=== PATIENT | female | born 1935 | race Caucasian/White ===

== ENCOUNTER 2016-11-19 11:09 | Inpatient (IN) | payer MEDICARE, OTHER ==
[2016-11-19 12:12] LABS: AUTOMATED BASOPHIL 0.3 % (0-2); AUTOMATED EOSINOPHIL 0.5 % (0-5); AUTOMATED LYMPH 8.9 % (17-44); AUTOMATED MONOCYTE 2.3 % (3-10); MPV 9.4 fL (7.4-10.4)
[2016-11-19 12:28] LABS: BLOOD UREA NITROGEN 56 MG/DL (7-17); CALC CORRECTED 9.5 MG/DL (8.4-10.2); CALCIUM 9.3 MG/DL (8.4-10.2); CALCULATED OSMOLALITY 297 MOs/Kg (270-290); CHLORIDE 109 mEq/L (98-107); GLUCOSE 83 MG/DL (70-99); SODIUM LEVEL 147 mEq/L (137-146); TOTAL PROTEIN 7.5 G/DL (6.3-8.2)
--- NOTE | 2016-11-19 12:33 | PMOFOLLOWU ---
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 However, CT scans dating back for at least the past year have shown her to essentially have had a complete response to her therapy. She comes in today to be evaluated before her 48th cycle of Perjeta/ Herceptin. Her 47th cycle was delayed 1 week due to dehydration. The patient had a persistent upper respiratory infection after 7 days of amoxicillin, so amoxicillin was continued for an additional 10 days. She states she completed her antibiotics yesterday. Unfortunately she has had significant diarrhea, which she attributes to the antibiotic use. She states she has not been using the Imodium regularly, as her stool was discolored. She denies nausea, vomiting or abdominal pain. She states her appetite is poor and has not been eating. She last ate Jello 2 days ago. She states she has been drinking plenty of fluids, including Gatorade. She remains weak and is in a wheelchair today. She denies dizziness, fevers or chills. She reports intermittent pain in her right ankle, where she has had previous surgery. She also has right knee pain and has had a recent injection in the knee. However, from a breast cancer perspective, she denies any new findings that concern her for disease progression while on her dual her 2 blockade therapy. PHYSICAL EXAMINATION: Vital signs today include a weight of 135.5 lb, this is a decrease of 13 lb, blood pressure 143/65, pulse 93, respirations 18 and temperature 98.4. Pulse oximetry is 97% on room air. Generally, she is alert and oriented x3 a week and chronically ill-appearing woman in no acute distress. HEENT: Oral mucosa is dry without lesion. Posterior pharynx is negative. Sclerae are anicteric. Lung exam is clear to auscultation bilaterally. Cardiac exam reveals a regular rate and rhythm, without murmurs, rubs, or gallops. Abdomen is soft, nontender, and nondistended without masses or hepatosplenomegaly. Extremities are without cyanosis, clubbing, or edema. The right ankle is not swollen, erythematous, tender or warm. Lymph node survey reveals no palpable cervical, clavicular, axillary, or inguinal lymphadenopathy. ASSESSMENT AND PLAN: 81-year-old metastatic her 2 Denny receptor positive breast cancer, including spread of her disease to her lungs. She has significant weight loss at this time, with severe diarrhea. As this is the case, I will delay 48th cycle of Perjeta/Herceptin 1 week. I will give her IV fluids today and attempt to obtain a stool specimen for evaluation for an infectious cause of her diarrhea. I will also obtain a CBC and comprehensive metabolic panel for further evaluation. We will plan to see her back in 1 week prior to a possible 48 cycle of Perjeta/Herceptin. The patient and her daughter understand the plans discussed today and are in agreement with them. They know to contact our office if she develops issues requiring immediate clinical assessment. Addendum: Complete metabolic panel revealed a creatinine of 5.3, BUN of 56 and potassium 2.1. The patient will be admitted with dehydration, acute renal failure, and hypokalemia. She also had leukocytosis with a white count of 17, so I am still concerned about potential infection. As a hospital bed is not immediately available, I will give her 10 meq potassium chloride IV over the next hour. If she is able, we will obtain a urine and stool specimen while we are awaiting a bed. The patient was able to supply stool specimen, which was positives for Clostridium difficile. Her nurse on the floor was notified.
[2016-11-19 14:37] LABS: LEUKOCYTES/URINE 2+ (NEGATIVE); NITRITE/URINE NEG (NEGATIVE); URINE OCCULT BLOOD 1+ (NEG/TRACE); WBC/URINE 30-40 (0-5)
[2016-11-19] MEDS ORDERED: Vaccine Screening Complete SCH (16:00)
[2016-11-19] MEDS ORDERED: OXYCODONE HCL 5 MG TABLET PO PRN (16:29)
[2016-11-19] MEDS ORDERED: PROMETHAZINE 25 MG/ML VIAL IV PRN (16:30)
[2016-11-19] MEDS ORDERED: ACETAMINOPHEN 325 MG/TAB TABLET PO PRN (16:30)
[2016-11-19] MEDS ORDERED: Aluminum;Magnesium;Simethicone 30 ML UDC PO PRN (16:30)
[2016-11-19] MEDS ORDERED: SODIUM CHLORIDE 0.9% 3 ML FLUSH FLUSH PRN (16:30)
--- NOTE | 2016-11-19 16:39 | HISTPHYS ---
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 However, CT scans dating back for at least the past year have shown her to essential have had a complete response to her therapy. She comes in today to be evaluated before her 48th cycle of Perjeta/Herceptin. Her 47th cycle was delayed 1 week due to dehydration. The patient had a persistent upper respiratory infection after 7 days of amoxicillin, so amoxicillin was continued for an additional 10 days. She states she completed her antibiotics yesterday. Unfortunately she has had significant diarrhea, which she attributes to the antibiotic use. She states she has not been using the Imodium regularly, as her stool was discolored. She denies nausea, vomiting or abdominal pain. She states her appetite is poor and has not been eating. She last ate Jello 2 days ago. She states she has been drinking plenty of fluids, including Gatorade. She remains weak and is in a wheelchair today. She denies dizziness, fevers or chills. She reports intermittent pain in her right ankle where she has had previous surgery. She also has right knee pain and has had a recent injection in the knee However, from a breast cancer perspective, she denies any new findings that concern her for disease progression while on her dual her 2 blockade therapy. Patient's stool was tested and she was found to be positive for C diff coli sepsis. She also has an extremely low potassium and we are repleting that IV. She will be admitted into the hospital for further evaluation and management of profound C diff colitis and hypokalemia. - Medical History Cardiac History: Denies: Hypertension, Congestive Heart Failure, Heart Attack, Cardiac Catheterization, CABG, Pacemaker, Syncope, SVT Respiratory History: Reports: Pulmonary Embolism (02/2014). Denies: Asthma, COPD, Pneumonia, Emphysema GI/ History: Denies: Renal Disease, Renal Failure, Urinary Tract Infection, Kidney Stones, Ulcer, Diverticulosis, Pancreatitis Musculoskeletal History: Reports: Arthritis. Denies: Gout Systemic History: Denies: Anemia, Hyperthyroidism, Hypothyroidism Neurological History: Denies: Cerebrovascular Accident, Seizures, Dementia, Guillian-Louise Syndrome, Parkinson's, Multiple Sclerosis Psychological History: Denies: Depression, Anxiety, Bipolar Disorder - Surgical History Denies: Appendectomy, Cholecystectomy, CABG, Angioplasty, Cardiac Catheterization, Hernia Surgery, Tonsillectomy/Adnoidectomy - Medictions/Allergies Allergies clarithromycin Allergy (Verified 03/31/15 09:04) Edema-Generalized nitrofurantoin Allergy (Verified 03/31/15 09:04) Nausea/Vomiting Sulfa (Sulfonamide Antibiotics) Allergy (Verified 03/31/15 09:04) Dizziness Current Medication List: Reviewed Home Medications Loratadine [Claritin] 10 mg PO DAILY PRN 02/07/14 Loperamide HCl [Imodium] 1 mg PO DAILY PRN 03/28/15 Mouthwash [Magic Mouthwash] 180 ml PO DAILY PRN 03/28/15 Ondansetron HCl [Zofran] 4 mg PO Q8H PRN 03/31/15 Oxycodone Immediate Release [Oxycodone Immediate Release (OxyIR)] 1 tab PO Q6H PRN 03/31/15 - Family History Reports: Hypertension (PARENTS), Cancer (BROTHER BRAIN TUMOR ), Stroke (MOTHER) , Cardiac Disorders (PARENTS). Denies: Diabetes - Social History Travel Outside of [place] in the Last 3 Months?: No Lives: With Family Smoking Status: Never smoker Social History: Denies: Alcohol Use - Review of Systems Constitutional: Fatigue, Loss of Appetite, Weight loss Eyes: No Symptoms Reported (No blurry vision, visual changes, eye pain, or eye redness.) Ears: No Symptoms Reported (No ear pain or discharge) Nose: No Symptoms Reported (No nasal discharge/congestion or bleeding) Throat/Neck: No Symptoms Reported (No throat pain or swelling.No oropharyngeal lesions or erythema.) Respiratory: No Symptoms Reported (No cough, wheezing, or shortness of breath.) Cardiovascular: No Symptoms Reported (No chest pain or palpitations.) Gastrointestinal: Nausea, Abdominal Pain, Diarrhea Genitourinary: No Symptoms Reported (No dysuria or hematuria.) Neurological: No Symptoms Reported (No headache, dizziness, seizures, or focal weakness.) Musculoskeletal:: Joint Pain (In her ankle) Integumentary: No Symptoms Reported (no rashes or lesions) Allergic/Immunologic: No Symptoms Reported (no rashes or lesions) Hematologic: No Symptoms Reported (No chronic anemia, bleeding, or easy bruising.), Other (Lymphatics- no lymph node swelling or pain.) Endocrine: No Symptoms Reported (No thyroid issues, polyuria, or polydipsia.) Psychiatric: No Symptoms Reported (Fully oriented, with normal and appropriate affect.) - Physical Exam Vital Signs: Initial Vitals Pulse Rate 80 11/19/16 14:57 Constitutional: Cachectic. negative: Well nourished, Well appearing (Ill- appearing white female in no acute respiratory distress) Oriented to: Time, Person, Place - HEENT Head: Normal (normocephalic, atraumatic.), Other (No cervical lymphadenopathy. No supraclavicular lymphadenopathy. Neck: No palpable mass, supple , trachea midline.) Eye: Normal (pupils equal, reactive to light, and round; EOMI, Sclera white) Oropharynx: Normal (Pharynx: Moist without exudate,Gums-no swelling, No oropharyngeal lesions or erythema, Mucous membranes are dry.) Nose: No Symptoms Reported (septum midline, Nares patent, without discharge or bleeding.) Respiratory: Normal - CTA (Clear to auscultation bilaterally. No wheezing, rales , rhonchi. Chest wall movements are symmetric. No use of accessory muscles to breathe.) Cardiovascular: Normal (RRR , Normal S1, S2. No murmurs, rubs, or gallops. PMI non-displaced. Carotids: no carotid bruits. No bradycardia or tachycardia. DP pulses 2+ bilaterally.) - GI Auscultation: Normal (normal active sounds) Palpation: Normal (Soft,non distended,nontender. No hepatosplenomegaly.) Tenderness: Diffuse, Mild Jordan's Sign: Negative - Musculoskeletal Back: Normal (Non-Tender) Extremities: Normal (Normal tone, DP pulses 2+ bilaterally, No cyanosis or edema bilaterally, FROM bilaterally.) - Integumentary Skin: Normal (Clean, dry, and intact. No rashes. No lesions.) Lymphatics: Normal (No cervical lymphadenopathy. No supraclavicular lymphadenopathy.) - Neurologic Memory Impaired: Normal Motor Function: Normal (Motor 5/5 throughout.Normal tone, Pulses 2+ No cyanosis or edema, FROM) Cranial Nerve: Normal (CN II-XII intact sensation, strength 5/5) Cerebellar: Normal (Babinski: toes downgoing bilaterally. Intact Finger to nose. Sensory grossly intact to light touch. Intact rapid alternating movements bilaterally. No pronator drift.) Mood Description: Normal (Fully oriented. Normal and appropriate affect.) Perception: Normal (Normal and appropriate affect.) - Focused CV Perfusion Exam Vital Signs: Last Vital Signs Temp 97.5 F 11/19/16 14:58 Pulse 64 11/19/16 14:58 Resp 18 11/19/16 14:58 BP 133/56 L 11/19/16 14:58 Pulse Ox 96 11/19/16 14:58 - Lab Results Laboratory Results - last 24 hr 11/19/16 11/19/16 11/19/16 11:53 11:53 14:19 WBC 17.0 H RBC 5.38 Hgb 15.1 Hct 45.9 MCV 85 MCH 28.0 MCHC 32.8 L RDW 15.4 H Plt Count 380 MPV 9.4 Neut % (Auto) 88.0 H Lymph % (Auto) 8.9 L [place] % (Auto) 2.3 L Eos % (Auto) 0.5 Baso % (Auto) 0.3 Absolute Neuts (auto) 14.96 H Absolute Lymphs (auto) 1.36 Sodium 147 H Potassium 2.1 L* Chloride 109 H Carbon Dioxide 16 L Anion Gap 24 H BUN 56 H Creatinine 5.30 H Estimated GFR (MDRD) 8 L Glucose 83 Calculated Osmolality 297 H Calcium 9.3 Corrected Calcium 9.5 Total Bilirubin 0.7 AST 19 ALT 24 Alkaline Phosphatase 121 Total Protein 7.5 Albumin 3.8 Urine Color Yellow Urine Clarity Clear Urine pH 5.0 Ur Specific [place] 1.005 Urine Protein 2+ H Urine Glucose (UA) Neg Urine Ketones Neg Urine Occult Blood 1+ H Urine Nitrite Neg Urine Bilirubin Neg Urine Urobilinogen <2.0 Ur Leukocyte Esterase 2+ H Urine RBC 2-5 Urine WBC 30-40 H Ur Epithelial Cells 2+ Urine Bacteria Few Urine Mucus Occ - Assessment (1) C. difficile colitis A04.7 - ENTEROCOLITIS DUE TO CLOSTRIDIUM DIFFICILE Acute Present on Admission: Yes Patient seen and Cancer Center today stool tested positive for C diff colitis. She is being directly admitted to the hospital for treatment of above C diff colitis. She will start Flagyl 500 mg p.o. t.i.d.. Expect discharge when patient's stool are fewer an more firm. (2) Inflammatory breast cancer C50.919 - MALIGNANT NEOPLASM OF UNSP SITE OF UNSPECIFIED FEMALE BREAST Acute Present on Admission: Yes Qualifiers: Laterality: left Qualified Code(s): C50.912 - Malignant neoplasm of unspecified site of left female breast Patient has had metastases to lung as well as the left breast cancer. She gets multiple cycles of chemotherapy is on her 49 cycle. Her 48 cycle was delayed due to illness and the 49th cycle is being held due to her admission for C diff colitis to the hospital today. (3) Hypokalemia E87.6 - HYPOKALEMIA Acute Present on Admission: Yes Patient's potassium is very low will repeat potassium after she received some potassium in the oncology clinic today. Will provide her with IV fluids with potassium as well suspected potassium is very low due to the diarrhea will also check a magnesium level. (4) Weakness R53.1 - WEAKNESS Acute Present on Admission: Yes Highly associated with C diff colitis expect this to improve once her overall clinical picture is improved. (5) DVT prophylaxis [id number] - Acute Present on Admission: Yes Patient currently on DVT prophylaxis with Lovenox. - Plan Admit, p.o. Flagyl, replete electrolytes and hydrate patient. Await return of normal stools. Case Care Discussed with: Patient, Nursing Staff Total Time: 55 minutes Critical Care: No Couseling Time (>50% in counseling/coordination): No
[2016-11-19] MEDS: NS/KCl 20 mEq 1,000 ML IV SCH (17:41)
[2016-11-19] MEDS: PROBIOTIC BLEND TAB PO SCH (17:43)
[2016-11-19] MEDS: SODIUM CHLORIDE 0.9% 3 ML FLUSH FLUSH SCH (17:43)
[2016-11-19] MEDS: ENOXAPARIN 30 MG/0.3 ML PFS SQ SCH (17:43)
[2016-11-19] MEDS: METRONIDAZOLE 500 MG TAB PO SCH ×2 (17:43→20:21)
[2016-11-19 18:12] LABS: BLOOD UREA NITROGEN 57 MG/DL (7-17); CALCIUM 8.5 MG/DL (8.4-10.2); CALCULATED OSMOLALITY 292 MOs/Kg (270-290); CHLORIDE 111 mEq/L (98-107); GLUCOSE 87 MG/DL (70-99); SODIUM LEVEL 144 mEq/L (137-146)
[2016-11-19] MEDS: POTASSIUM CHLORIDE 20 MEQ/15 ML ORAL SOLN PO SCH ×3 (18:40→22:41)
[2016-11-19] MEDS ORDERED: SECURA EXTRA PROTECTIVE CREAM TOP ONE (22:33)
[2016-11-19 23:56] LABS: BLOOD UREA NITROGEN 56 MG/DL (7-17); CALCIUM 8.5 MG/DL (8.4-10.2); CALCULATED OSMOLALITY 291 MOs/Kg (270-290); CHLORIDE 113 mEq/L (98-107); GLUCOSE 95 MG/DL (70-99); SODIUM LEVEL 143 mEq/L (137-146)
[2016-11-20] MEDS: POTASSIUM CHLORIDE 20 MEQ/15 ML ORAL SOLN PO SCH (01:44)
[2016-11-20] MEDS: NS/KCl 20 mEq 1,000 ML IV SCH ×5 (01:45→20:57)
[2016-11-20] MEDS: SODIUM CHLORIDE 0.9% 3 ML FLUSH FLUSH SCH ×2 (05:06→17:29)
[2016-11-20] MEDS: METRONIDAZOLE 500 MG TAB PO SCH ×2 (05:06→13:27)
[2016-11-20 05:33] LABS: AUTOMATED BASOPHIL 0.4 % (0-2); AUTOMATED EOSINOPHIL 2.2 % (0-5); AUTOMATED LYMPH 10.6 % (17-44); AUTOMATED MONOCYTE 4.4 % (3-10); AUTOMATED NEUTROPHIL 82.4 % (45-76); MPV 9.6 fL (7.4-10.4)
[2016-11-20 05:50] LABS: BLOOD UREA NITROGEN 52 MG/DL (7-17); CALC CORRECTED 10.2 MG/DL (8.4-10.2); CALCIUM 8.6 MG/DL (8.4-10.2); CALCULATED OSMOLALITY 295 MOs/Kg (270-290); CHLORIDE 117 mEq/L (98-107); GLUCOSE 99 MG/DL (70-99); SODIUM LEVEL 146 mEq/L (137-146)
--- NOTE | 2016-11-20 11:58 | GENMEDPROG ---
Chief Complaint: diarrhea some better loose bm w/ each meal Notes Reviewed: Yes Events from last night noted and discussed with Clinical Staff Current Medication List: Reviewed DVT Prophylaxis: Yes - Physical Examination Vital Signs and I&O: Last Vital Signs Temp 97.7 F 11/20/16 05:38 Pulse 72 11/20/16 11:34 Resp 16 11/20/16 11:34 BP 139/64 11/20/16 11:34 Pulse Ox 100 11/20/16 11:34 Oxygen Pulse Oxygen Saturation 100 O2 Device Room Air Oxygen Flow Rate Fraction of Inspired Oxygen ( FIO2) Intake & Output 11/17/16 11/18/16 11/19/16 11/20/16 23:59 23:59 23:59 23:59 Intake Total 240 1420 Balance 240 1420 Patient's weight 60.146 kg 61.235 kg General: Alert, Oriented x3, No acute distress, Well appearing, Well nourished HEENT: Normal (Normocephalic, atraumatic;EOMI.Sclera white, Nares patent, without discharge or bleeding. No oropharyngeal lesions or erythema. Mucous membranes are dry.) Neck: Non-tender, Normal Trachea alignment, Normal inspection (No cervical lymphadenopathy. No supraclavicular lymphadenopathy.), No Masses palpable, Limited range of motion, Supple Lymphatics: Normal (No cervical lymphadenopathy. No supraclavicular lymphadenopathy.) Respiratory: Normal - CTA (Clear to auscultation bilaterally. No wheezing, rales , rhonchi. Chest wall movements are symmetric. No use of accessory muscles to breathe.) Cardiovascular: Regular rate and rhythm (No bradycardia or tachycardia), Normal S1, No Gallops,Rubs/Murmurs, Normal S2, Good Pedal Pulses (DP pulses 2+ bilaterally) GI: Normal bowel sounds (normal active sounds), Soft (non-distended), Non tender , No hepatospenomegaly, No masses Extremities/Musculoskeletal: Normal pulses (DP pulses 2+ bilaterally). negative : Edema, Clubbing, Cyanosis Skin: Warm,Dry and Intact, No rashes, No significant lesion Neurological: Strength at 5/5 X4 ext (Motor 5/5 throughout.), Normal tone, Cranial nerves 3-12 NL ( 2-12 grossly intact.) Psych/Mental Status: Appropriate, Normal Affect Lab/DI/Studies Reviewed: 11/20/16 05:05 11/20/16 05:05 Laboratory Results - last 24 hr 11/19/16 11/19/16 11/19/16 11:53 11:53 14:19 WBC 17.0 H RBC 5.38 Hgb 15.1 Hct 45.9 MCV 85 MCH 28.0 MCHC 32.8 L RDW 15.4 H Plt Count 380 MPV 9.4 Neut % (Auto) 88.0 H Lymph % (Auto) 8.9 L [place] % (Auto) 2.3 L Eos % (Auto) 0.5 Baso % (Auto) 0.3 Absolute Neuts (auto) 14.96 H Absolute Lymphs (auto) 1.36 Sodium 147 H Potassium 2.1 L* Chloride 109 H Carbon Dioxide 16 L Anion Gap 24 H BUN 56 H Creatinine 5.30 H Estimated GFR (MDRD) 8 L Glucose 83 Calculated Osmolality 297 H Calcium 9.3 Corrected Calcium 9.5 Magnesium Total Bilirubin 0.7 AST 19 ALT 24 Alkaline Phosphatase 121 Total Protein 7.5 Albumin 3.8 Urine Color Yellow Urine Clarity Clear Urine pH 5.0 Ur Specific [place] 1.005 Urine Protein 2+ H Urine Glucose (UA) Neg Urine Ketones Neg Urine Occult Blood 1+ H Urine Nitrite Neg Urine Bilirubin Neg Urine Urobilinogen <2.0 Ur Leukocyte Esterase 2+ H Urine RBC 2-5 Urine WBC 30-40 H Ur Epithelial Cells 2+ Urine Bacteria Few Urine Mucus Occ 11/19/16 11/19/16 11/19/16 17:30 18:35 23:10 WBC RBC Hgb Hct MCV MCH MCHC RDW Plt Count MPV Neut % (Auto) Lymph % (Auto) [place] % (Auto) Eos % (Auto) Baso % (Auto) Absolute Neuts (auto) Absolute Lymphs (auto) Sodium 144 143 Potassium 2.2 L* 2.9 L D Chloride 111 H 113 H Carbon Dioxide 14 L 14 L Anion Gap 21 H 19 H BUN 57 H 56 H Creatinine 4.70 H 4.50 H Estimated GFR (MDRD) 9 L 9 L Glucose 87 95 Calculated Osmolality 292 H 291 H Calcium 8.5 8.5 Corrected Calcium Education Program Manager Magnesium 1.90 Total Bilirubin AST ALT Alkaline Phosphatase Total Protein Albumin Urine Color Urine Clarity Urine pH Ur Specific [place] Urine Protein Urine Glucose (UA) Urine Ketones Urine Occult Blood Urine Nitrite Urine Bilirubin Urine Urobilinogen Ur Leukocyte Esterase Urine RBC Urine WBC Ur Epithelial Cells Urine Bacteria Urine Mucus 11/20/16 11/20/16 05:05 05:05 WBC 13.8 H RBC 3.96 L Hgb 11.3 L D Hct 33.7 L MCV 85 MCH 28.5 MCHC 33.5 RDW 15.5 H Plt Count 243 MPV 9.6 Neut % (Auto) 82.4 H Lymph % (Auto) 10.6 L [place] % (Auto) 4.4 Eos % (Auto) 2.2 Baso % (Auto) 0.4 Absolute Neuts (auto) 11.32 H Absolute Lymphs (auto) 1.38 Sodium 146 Potassium 3.4 L Chloride 117 H Carbon Dioxide 16 L Anion Gap 16 BUN 52 H Creatinine 4.40 H Estimated GFR (MDRD) 10 L Glucose 99 Calculated Osmolality 295 H Calcium 8.6 Corrected Calcium 10.2 Magnesium Total Bilirubin 0.4 AST 11 L ALT 28 Alkaline Phosphatase 85 Total Protein 5.0 L Albumin 2.4 L Urine Color Urine Clarity Urine pH Ur Specific [place] Urine Protein Urine Glucose (UA) Urine Ketones Urine Occult Blood Urine Nitrite Urine Bilirubin Urine Urobilinogen Ur Leukocyte Esterase Urine RBC Urine WBC Ur Epithelial Cells Urine Bacteria Urine Mucus - Assessment (1) ARF (acute renal failure) Acute N17.9 - ACUTE KIDNEY FAILURE, UNSPECIFIED Qualifiers: Acute renal failure type: with acute tubular necrosis Qualified Code(s): N17.0 - Acute kidney failure with tubular necrosis Comment/Plan: Aggressive IV rehydration is necessary. Check renal ultrasound. (2) C. difficile colitis Acute A04.7 - ENTEROCOLITIS DUE TO CLOSTRIDIUM DIFFICILE Comment/Plan: Patient seen and Cancer Center today stool tested positive for C diff colitis. She is being directly admitted to the hospital for treatment of above C diff colitis. Discussed with pharmacist Patricia who agrees that we should administer p.o. vancomycin instead of Flagyl due to her renal failure and multiple complications. Expect discharge when patient's stool are fewer and more firm. (3) Hypokalemia Acute E87.6 - HYPOKALEMIA Comment/Plan: Patient's potassium is very low will repeat potassium after she received some potassium in the oncology clinic today. Will provide her with IV fluids with potassium as well suspected potassium is very low due to the diarrhea will also check a magnesium level. 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 She gets multiple cycles of chemotherapy is on her 49 cycle. Her 48 cycle was delayed due to illness and the 49th cycle is being held due to her admission for C diff colitis to the hospital today. (5) Weakness Acute R53.1 - WEAKNESS Comment/Plan: Highly associated with C diff colitis expect this to improve once her overall clinical picture is improved. (6) DVT prophylaxis Acute [id number] - Comment/Plan: Patient currently on DVT prophylaxis with Lovenox. Case Care Discussed with: Patient, Family, Nursing Staff, Resource Management Education/Counseling Given To: Patient, Family Member Education/Counseling Given Regarding: Diagnosis Total Time: 38 min Critical Care: No Code: [id number] (12+)
[2016-11-20] MEDS: PROBIOTIC BLEND TAB PO SCH ×2 (13:27→17:29)
[2016-11-20] MEDS: NYSTATIN ORAL SUSP 5 ML PO SCH ×2 (17:29→20:59)
[2016-11-20] MEDS: VANCOMYCIN PO SCH ×2 (17:29→23:51)
[2016-11-20] MEDS: ENOXAPARIN 30 MG/0.3 ML PFS SQ SCH (17:30)
--- NOTE | 2016-11-20 20:13 | PCM.CCCON2 ---
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 However she has been declining recently with decreased appetite and now loose bowels. She has become very weak and was found to be in acute renal failure with a creatinine of 2.7 and was admitted for hydration. Testing has confirmed clostridia difficile colitis and she is being treated for that. She complains of soreness of her mouth, especially at the corners of her mouth which are dry and scaly. She is receiving IV hydration in addition to antibiotics and has been instructed to eat yogurt. Her therapy is on hold at this time. Last CT scan in September revealed no evidence of disease other than some tiny pulmonary nodules of unclear significance. Her last echocardiogram was in August of 2016. Past Medical History: Metastatic breast cancer, history of pulmonary embolism in February of 2014, hypertension and osteoarthritis. Past Surgical History: Cholecystectomy, right foot surgery, and partial hysterectomy. Allergies clarithromycin Allergy (Verified 11/20/16 14:51) Edema-Generalized nitrofurantoin Allergy (Verified 11/20/16 14:51) Nausea/Vomiting Sulfa (Sulfonamide Antibiotics) Allergy (Verified 11/20/16 14:51) Dizziness Home Medications No Home Medications 11/20/16 Family History: A brother of a malignant brain tumor. Social History: Traveled outside the [place] in the last 3 months? No. She has 2 living children. Never smoker, but did dip tobacco for over 40 years. She does not drink alcohol. She worked in the [employer] industry. Review of Systems: She is unable to give a review of systems. Physical Examination: Temperature: 97.6 F (11/20/16 19:51)HR: 78 (11/20/16 19:51)RR: 18 (11/20/16 19: 51)BP: 137/69 (11/20/16 19:51) SAT:97 (11/20/16 19:51) This is a thin elderly pale woman who is quite weak and lethargic. HEENT: pupils are equal, round, reactive to light. She has an oxygen mask in place. Sclera are nonicteric. Posterior pharynx has some mild erythema with scaling and cracking at the corners of her mouth. No thyromegaly. No adenopathy is palpated in the cervical, clavicular, axillary or inguinal areas. Lungs are clear to auscultation and percussion. Heart has a regular rate and rhythm with no murmurs or gallops. Abdomen is soft, no masses, no hepatosplenomegaly or tenderness. Extremities are without edema. Neurologic exam is grossly intact. LAB/DI: Laboratory Results - last 24 hr 11/19/16 11/19/16 11/20/16 18:35 23:10 05:05 WBC RBC Hgb Hct MCV MCH MCHC RDW Plt Count MPV Neut % (Auto) Lymph % (Auto) [place] % (Auto) Eos % (Auto) Baso % (Auto) Absolute Neuts (auto) Absolute Lymphs (auto) Sodium 143 146 Potassium 2.9 L D 3.4 L Chloride 113 H 117 H Carbon Dioxide 14 L 16 L Anion Gap 19 H 16 BUN 56 H 52 H Creatinine 4.50 H 4.40 H Estimated GFR (MDRD) 9 L 10 L Glucose 95 99 Calculated Osmolality 291 H 295 H Calcium 8.5 8.6 Corrected Calcium Director Meetings 10.2 Total Bilirubin 0.4 AST 11 L ALT 28 Alkaline Phosphatase 85 Total Protein 5.0 L Albumin 2.4 L 11/20/16 05:05 WBC 13.8 H RBC 3.96 L Hgb 11.3 L D Hct 33.7 L MCV 85 MCH 28.5 MCHC 33.5 RDW 15.5 H Plt Count 243 MPV 9.6 Neut % (Auto) 82.4 H Lymph % (Auto) 10.6 L Harper % (Auto) 4.4 Eos % (Auto) 2.2 Baso % (Auto) 0.4 Absolute Neuts (auto) 11.32 H Absolute Lymphs (auto) 1.38 Sodium Potassium Chloride Carbon Dioxide Anion Gap BUN Creatinine Estimated GFR (MDRD) Glucose Calculated Osmolality Calcium Corrected Calcium Total Bilirubin AST ALT Alkaline Phosphatase Total Protein Albumin Recommendations: Impression and recommendations: 1. Clostridia difficile colitis, I agree with your management. 2. Metastatic her positive breast cancer on systemic therapy with her 2 blockade. Her last scans showed she is in remission. 3. Acute renal failure which appears largely related to dehydration from #1. She is now receiving replacement fluids. 4. Anemia, mild. 5. Early oral candidiasis. 6. History of pulmonary embolism in 2014. I agree with your medical management and will add nystatin oral suspension for her oral candidiasis. Otherwise we will follow along while she is in the hospital and reschedule her appointment when discharge. Thank you for this consultation.
[2016-11-20] MEDS ORDERED: SECURA EXTRA PROTECTIVE CREAM TOP ONE (20:54)
[2016-11-21] MEDS: NS/KCl 20 mEq 1,000 ML IV SCH ×5 (02:30→21:07)
[2016-11-21 05:30] LABS: MPV 9.3 fL (7.4-10.4)
[2016-11-21 05:45] LABS: BLOOD UREA NITROGEN 42 MG/DL (7-17); CALCIUM 8.3 MG/DL (8.4-10.2); CALCULATED OSMOLALITY 294 MOs/Kg (270-290); CHLORIDE 126 mEq/L (98-107); GLUCOSE 76 MG/DL (70-99); SODIUM LEVEL 148 mEq/L (137-146)
[2016-11-21] MEDS: SODIUM CHLORIDE 0.9% 3 ML FLUSH FLUSH SCH ×2 (06:19→16:24)
[2016-11-21] MEDS: VANCOMYCIN PO SCH ×3 (06:20→18:08)
[2016-11-21] MEDS: NYSTATIN ORAL SUSP 5 ML PO SCH ×4 (07:54→21:40)
--- NOTE | 2016-11-21 10:03 | GENMEDPROG ---
Chief Complaint: feeling stronger Notes Reviewed: Yes Events from last night noted and discussed with Clinical Staff Current Medication List: Reviewed DVT Prophylaxis: Yes - Physical Examination Vital Signs and I&O: Last Vital Signs Temp 97.4 F L 11/21/16 08:00 Pulse 66 11/21/16 08:00 Resp 16 11/21/16 08:00 BP 123/67 11/21/16 08:00 Pulse Ox 97 11/21/16 09:34 Oxygen Pulse Oxygen Saturation 97 O2 Device Room Air Oxygen Flow Rate Fraction of Inspired Oxygen ( FIO2) Intake & Output 11/18/16 11/19/16 11/20/16 11/21/16 23:59 23:59 23:59 23:59 Intake Total 240 3772 2360 Balance 240 3772 2360 Patient's weight 60.146 kg 61.235 kg 61.49 kg General: Alert, Oriented x3, No acute distress, Well appearing, Well nourished HEENT: Normal (Normocephalic, atraumatic;EOMI.Sclera white, Nares patent, without discharge or bleeding. No oropharyngeal lesions or erythema. Mucous membranes are dry.) Neck: Non-tender, Normal Trachea alignment, Normal inspection (No cervical lymphadenopathy. No supraclavicular lymphadenopathy.), No Masses palpable, Limited range of motion, Supple Lymphatics: Normal (No cervical lymphadenopathy. No supraclavicular lymphadenopathy.) Respiratory: Normal - CTA (Clear to auscultation bilaterally. No wheezing, rales , rhonchi. Chest wall movements are symmetric. No use of accessory muscles to breathe.) Cardiovascular: Regular rate and rhythm (No bradycardia or tachycardia), Normal S1, No Gallops,Rubs/Murmurs, Normal S2, Good Pedal Pulses (DP pulses 2+ bilaterally) GI: Normal bowel sounds (normal active sounds), Soft (non-distended), Non tender , No hepatospenomegaly, No masses Extremities/Musculoskeletal: Normal pulses (DP pulses 2+ bilaterally). negative : Edema, Clubbing, Cyanosis Skin: Warm,Dry and Intact, No rashes, No significant lesion Neurological: Strength at 5/5 X4 ext (Motor 5/5 throughout.), Normal tone, Cranial nerves 3-12 NL ( 2-12 grossly intact.) Psych/Mental Status: Appropriate, Normal Affect Lab/DI/Studies Reviewed: 11/21/16 04:55 11/21/16 04:55 Laboratory Results - last 24 hr 11/21/16 11/21/16 04:55 04:55 WBC 8.1 RBC 3.71 L Hgb 10.5 L Hct 32.4 L MCV 87 MCH 28.4 MCHC 32.6 L RDW 16.0 H Plt Count 215 MPV 9.3 Sodium 148 H Potassium 3.6 Chloride 126 H Carbon Dioxide 14 L Anion Gap 12 BUN 42 H Creatinine 3.90 H Estimated GFR (MDRD) 11 L Glucose 76 Calculated Osmolality 294 H Calcium 8.3 L - Assessment (1) ARF (acute renal failure) Acute N17.9 - ACUTE KIDNEY FAILURE, UNSPECIFIED Qualifiers: Acute renal failure type: with acute tubular necrosis Qualified Code(s): N17.0 - Acute kidney failure with tubular necrosis Comment/Plan: Aggressive IV rehydration is necessary. Check renal ultrasound today. (2) C. difficile colitis Acute A04.7 - ENTEROCOLITIS DUE TO CLOSTRIDIUM DIFFICILE Comment/Plan: Patient seen and [facility] today stool tested positive for C diff colitis. She is being directly admitted to the hospital for treatment of above C diff colitis. Discussed with pharmacist Patricia who agrees that we should administer p.o. vancomycin instead of Flagyl due to her renal failure and multiple complications. Expect discharge when patient's stool are fewer and more firm. (3) Hypokalemia Acute E87.6 - HYPOKALEMIA Comment/Plan: Patient's potassium is very low will repeat potassium after she received some potassium in the oncology clinic today. Will provide her with IV fluids with potassium as well suspected potassium is very low due to the diarrhea will also check a magnesium level. 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 She gets multiple cycles of chemotherapy is on her 49 cycle. Her 48 cycle was delayed due to illness and the 49th cycle is being held due to her admission for C diff colitis to the hospital today. (5) Weakness Acute R53.1 - WEAKNESS Comment/Plan: Highly associated with C diff colitis expect this to improve once her overall clinical picture is improved. (6) DVT prophylaxis Acute [id number] - Comment/Plan: Patient currently on DVT prophylaxis with Lovenox. Case Care Discussed with: Patient, Nursing Staff, Resource Management Education/Counseling Given To: Patient Education/Counseling Given Regarding: Diagnosis, Treatment Total Time: 39 min Critical Care: No Code: 70836 (12+)
[2016-11-21] MEDS: NS 1,000 ML IV SCH ×2 (10:23→14:25)
[2016-11-21] MEDS: PROBIOTIC BLEND TAB PO SCH ×2 (12:18→16:24)
[2016-11-21] MEDS: MAGIC MOUTHWASH 180 ML ORAL SUSP PO SCH ×3 (12:19→21:40)
[2016-11-21 14:33] LABS: OVA & PARASITE EXAM Final report (.)
--- NOTE | 2016-11-21 16:06 | DIRPT ---
CLINICAL DATA: Acute renal failure. EXAM: RENAL / URINARY TRACT ULTRASOUND COMPLETE COMPARISON: PET-CT 02/08/2014, abdominal CT 01/30/2015 FINDINGS: Right Kidney: Length: 11.7 cm. Echogenicity within normal limits. No hydronephrosis visualized. 1.9 cm parapelvic cyst unchanged. Left Kidney: Length: 11.5 cm. Echogenicity within normal limits. No hydronephrosis visualized. Well-defined oval homogeneously hypoechoic 1.9 cm exophytic mass over the lower pole of the left kidney slightly larger compared to the previous exams. Bladder: Appears normal for degree of bladder distention. IMPRESSION: Normal size kidneys without evidence of hydronephrosis. 1.9 cm indeterminate mass over the lower pole of the left kidney slightly larger. As suggested previously, dedicated pre and post-contrast CT versus MRI is recommended for further evaluation. 1.9 cm right parapelvic renal cyst unchanged. Electronically Signed By: Tyrese Go M.D. On: 11/21/2016 16:03
[2016-11-21] MEDS: ENOXAPARIN 30 MG/0.3 ML PFS SQ SCH (16:23)
--- NOTE | 2016-11-21 17:04 | PCM.CCPN2 ---
Oncology/Hematology Progress Note: HISTORY OF PRESENT ILLNESS: The patient appears to be resting comfortably and states that she is feeling better. She continues having diarrhea but is now less frequent. She states that her mouth is feeling better and she has been able to eat since using nystatin and Magic mouthwash. She really has no complaints today. She denies fever, chills, night sweats. No chest pain, cough , palpitations, shortness of breath. No significant abdominal pain or constipation. She denies nausea and vomiting. PHYSICAL EXAMINATION: VITALS: T-97.9, P-67, R-20, BP-149/70, Oxygen saturation- 97%RA.GENERAL: Well appearing, in no acute distress. HEENT: atraumatic normocephalic. Oropharynx with mild mucositis. Neck is supple. No lymphadenopathy. Sclera are anicteric. LUNGS: Clear to auscultation bilaterally. CARDIOVASCULAR: Regular rate and rhythm, no murmurs, rubs, or gallops. ABDOMEN: Soft, nontender, nondistended, no hepatosplenomegaly. LYMPH NODE SURVEY: No cervical, supraclavicular, axillary, or inguinal lymphadenopathy palpated. EXTREMITIES: No clubbing, cyanosis, or edema. NEURO: Grossly intact. LABORATORY DATA: [] Laboratory Last Values WBC 8.1 xk/uL (3.8-10.8) 11/21/16 04:55 RBC 3.71 xM/uL (4.20-5.40) L 11/21/16 04:55 Hgb 10.5 g/dL (12.0-16.0) L 11/21/16 04:55 Hct 32.4 % (36-47) L 11/21/16 04:55 MCV 87 fL (81-99) 11/21/16 04:55 MCH 28.4 pg (27-32) 11/21/16 04:55 MCHC 32.6 g/dl (33-36) L 11/21/16 04:55 RDW 16.0 % (11.5-14.5) H 11/21/16 04:55 Plt Count 215 xk/uL (130-400) 11/21/16 04:55 MPV 9.3 fL (7.4-10.4) 11/21/16 04:55 Neut % (Auto) 82.4 % (45-76) H 11/20/16 05:05 Lymph % (Auto) 10.6 % (17-44) L 11/20/16 05:05 [place] % (Auto) 4.4 % (3-10) 11/20/16 05:05 Eos % (Auto) 2.2 % (0-5) 11/20/16 05:05 Baso % (Auto) 0.4 % (0-2) 11/20/16 05:05 Absolute Neuts (auto) 11.32 xk/uL (1.7-8.2) H 11/20/16 05:05 Absolute Lymphs (auto) 1.38 xk/uL (0.65-4.75) 11/20/16 05:05 Sodium 148 mEq/L (137-146) H 11/21/16 04:55 Potassium 3.6 mEq/L (3.5-5.1) 11/21/16 04:55 Chloride 126 mEq/L (98-107) H 11/21/16 04:55 Carbon Dioxide 14 mMOL/L (22-33) L 11/21/16 04:55 Anion Gap 12 mEq/L (8-16) 11/21/16 04:55 BUN 42 MG/DL (7-17) H 11/21/16 04:55 Creatinine 3.90 MG/DL (0.52-1.04) H 11/21/16 04:55 Estimated GFR (MDRD) 11 mL/min (>=60) L 11/21/16 04:55 Glucose 76 MG/DL (70-99) 11/21/16 04:55 Calculated Osmolality 294 MOs/Kg (270-290) H 11/21/16 04:55 Calcium 8.3 MG/DL (8.4-10.2) L 11/21/16 04:55 Corrected Calcium 10.2 MG/DL (8.4-10.2) 11/20/16 05:05 Magnesium 1.90 MG/DL (1.6-2.3) 11/19/16 17:30 Total Bilirubin 0.4 MG/DL (0.2-1.3) 11/20/16 05:05 AST 11 IU/L (14-36) L 11/20/16 05:05 ALT 28 IU/L (9-52) 11/20/16 05:05 Alkaline Phosphatase 85 IU/L (55-165) 11/20/16 05:05 Total Protein 5.0 G/DL (6.3-8.2) L 11/20/16 05:05 Albumin 2.4 G/DL (3.5-5.0) L 11/20/16 05:05 Urine Color Yellow 11/19/16 14:19 Urine Clarity Clear 11/19/16 14:19 Urine pH 5.0 (5.0-8.0) 11/19/16 14:19 Ur Specific [place] 1.005 (1.003-1.035) 11/19/16 14:19 Urine Protein 2+ (NEG/TRACE) H 11/19/16 14:19 Urine Glucose (UA) Neg (NEGATIVE) 11/19/16 14:19 Urine Ketones Neg (NEGATIVE) 11/19/16 14:19 Urine Occult Blood 1+ (NEG/TRACE) H 11/19/16 14:19 Urine Nitrite Neg (NEGATIVE) 11/19/16 14:19 Urine Bilirubin Neg (NEGATIVE) 11/19/16 14:19 Urine Urobilinogen <2.0 MG/DL (0-1) 11/19/16 14:19 Ur Leukocyte Esterase 2+ (NEGATIVE) H 11/19/16 14:19 Urine RBC 2-5 (0-5) 11/19/16 14:19 Urine WBC 30-40 (0-5) H 11/19/16 14:19 Ur Epithelial Cells 2+ 11/19/16 14:19 Urine Bacteria Few (NEG/FEW) 11/19/16 14:19 Urine Mucus Occ (NEG/OCC) 11/19/16 14:19 Stool Ova & Parasites Final report (.) 11/19/16 14:19 Parasite Special Info 11/19/16 14:19 A&P: This is a 81-year-old female with 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 She will continue on antibiotics for C-diff. The patient 's last scans do show that she is in remission while on systemic therapy. Her acute renal failure is resolving, however, her creatinine is still quite elevated at 3.9. It appears her oral candidiasis is resolving and she is now able to eat. We will continue following while she is hospitalized please call with any questions or concerns.
[2016-11-21] MEDS ORDERED: SECURA EXTRA PROTECTIVE CREAM TOP ONE (21:37)
[2016-11-22] MEDS: NS/KCl 20 mEq 1,000 ML IV SCH ×4 (00:22→09:44)
[2016-11-22] MEDS: VANCOMYCIN PO SCH ×5 (00:35→23:54)
[2016-11-22] MEDS: SODIUM CHLORIDE 0.9% 3 ML FLUSH FLUSH SCH ×2 (01:37→17:30)
[2016-11-22 05:23] LABS: MPV 9.5 fL (7.4-10.4)
[2016-11-22 05:35] LABS: BLOOD UREA NITROGEN 32 MG/DL (7-17); CALCIUM 7.9 MG/DL (8.4-10.2); CALCULATED OSMOLALITY 291 MOs/Kg (270-290); CHLORIDE 129 mEq/L (98-107); GLUCOSE 65 MG/DL (70-99); SODIUM LEVEL 149 mEq/L (137-146)
[2016-11-22] MEDS: MAGIC MOUTHWASH 180 ML ORAL SUSP PO SCH ×4 (08:29→20:34)
[2016-11-22] MEDS: NYSTATIN ORAL SUSP 5 ML PO SCH ×4 (08:29→20:34)
[2016-11-22] MEDS: PROBIOTIC BLEND TAB PO SCH ×2 (12:36→17:30)
[2016-11-22] MEDS: ENOXAPARIN 30 MG/0.3 ML PFS SQ SCH (17:30)
--- NOTE | 2016-11-22 22:20 | GENMEDPROG ---
Chief Complaint: less diarrhea seems to be improving. Notes Reviewed: Yes Events from last night noted and discussed with Clinical Staff Current Medication List: Reviewed DVT Prophylaxis: Yes - Physical Examination Vital Signs and I&O: Last Vital Signs Temp 97.7 F 11/22/16 20:00 Pulse 84 11/22/16 20:00 Resp 18 11/22/16 20:00 BP 156/86 11/22/16 20:00 Pulse Ox 98 11/22/16 20:00 Oxygen Pulse Oxygen Saturation 98 O2 Device Room Air Oxygen Flow Rate Fraction of Inspired Oxygen ( FIO2) Intake & Output 11/19/16 11/20/16 11/21/16 11/22/16 23:59 23:59 23:59 23:59 Intake Total 240 3772 4866 3480 Output Total 1200 Balance 240 3772 4866 2280 Patient's weight 60.146 kg 61.235 kg 61.49 kg 61.83 kg General: Alert, Oriented x3, No acute distress, Well appearing, Well nourished HEENT: Normal (Normocephalic, atraumatic;EOMI.Sclera white, Nares patent, without discharge or bleeding. No oropharyngeal lesions or erythema. Mucous membranes are dry.) Neck: Non-tender, Normal Trachea alignment, Normal inspection (No cervical lymphadenopathy. No supraclavicular lymphadenopathy.), No Masses palpable, Limited range of motion, Supple Lymphatics: Normal (No cervical lymphadenopathy. No supraclavicular lymphadenopathy.) Respiratory: Normal - CTA (Clear to auscultation bilaterally. No wheezing, rales , rhonchi. Chest wall movements are symmetric. No use of accessory muscles to breathe.) Cardiovascular: Regular rate and rhythm (No bradycardia or tachycardia), Normal S1, No Gallops,Rubs/Murmurs, Normal S2, Good Pedal Pulses (DP pulses 2+ bilaterally) GI: Normal bowel sounds (normal active sounds), Soft (non-distended), Non tender , No hepatospenomegaly, No masses Extremities/Musculoskeletal: Normal pulses (DP pulses 2+ bilaterally). negative : Edema, Clubbing, Cyanosis Skin: Warm,Dry and Intact, No rashes, No significant lesion Neurological: Strength at 5/5 X4 ext (Motor 5/5 throughout.), Normal tone, Cranial nerves 3-12 NL ( 2-12 grossly intact.) Psych/Mental Status: Appropriate, Normal Affect Lab/DI/Studies Reviewed: 11/22/16 05:00 11/22/16 05:00 Laboratory Results - last 24 hr 11/22/16 11/22/16 05:00 05:00 WBC 7.6 RBC 3.81 L Hgb 11.0 L Hct 33.6 L MCV 88 MCH 28.9 MCHC 32.7 L RDW 17.1 H Plt Count 207 MPV 9.5 Sodium 149 H Potassium 4.2 Chloride 129 H Carbon Dioxide 10 L Anion Gap 14 BUN 32 H Creatinine 3.50 H Estimated GFR (MDRD) 13 L Glucose 65 L Calculated Osmolality 291 H Calcium 7.9 L - Assessment (1) ARF (acute renal failure) Acute N17.9 - ACUTE KIDNEY FAILURE, UNSPECIFIED Qualifiers: Acute renal failure type: with acute tubular necrosis Qualified Code(s): N17.0 - Acute kidney failure with tubular necrosis Comment/Plan: Aggressive IV rehydration is necessary. Renal ultrasound failed to show any evidence of hydronephrosis cystic kidneys. (2) C. difficile colitis Acute A04.7 - ENTEROCOLITIS DUE TO CLOSTRIDIUM DIFFICILE Comment/Plan: Patient seen and Cancer [facility] today stool tested positive for C diff colitis. She is being directly admitted to the hospital for treatment of above C diff colitis. Discussed with pharmacist Patricia who agrees that we should administer p.o. vancomycin instead of Flagyl due to her renal failure and multiple complications. Expect discharge when patient's stool are fewer and more firm. (3) Inflammatory breast cancer Acute C50.919 - MALIGNANT NEOPLASM OF UNSP SITE OF UNSPECIFIED FEMALE BREAST Qualifiers: Laterality: left Qualified Code(s): C50.912 - Malignant neoplasm of unspecified site of left female breast Comment/Plan: Patient has had metastases to lung as well as the left breast cancer. She gets multiple cycles of chemotherapy is on her 49 cycle. Her 48 cycle was delayed due to illness and the 49th cycle is being held due to her admission for C diff colitis to the hospital today. (4) Weakness Acute R53.1 - WEAKNESS Comment/Plan: Highly associated with C diff colitis expect this to improve once her overall clinical picture is improved. (5) DVT prophylaxis Acute [id number] - Comment/Plan: Patient currently on DVT prophylaxis with Lovenox. (6) Hypokalemia Resolved E87.6 - HYPOKALEMIA Comment/Plan: Patient's potassium is very low will repeat potassium after she received some potassium in the oncology clinic today. Will provide her with IV fluids with potassium as well suspected potassium is very low due to the diarrhea will also check a magnesium level. (7) Hypernatremia Acute E87.0 - HYPEROSMOLALITY AND HYPERNATREMIA Comment/Plan: Noted to have hypernatremia and will switch her IV saline to D5&w monitoring her electrolytes closely. Case Care Discussed with: Patient, Nursing Staff, Resource Management Education/Counseling Given To: Patient Education/Counseling Given Regarding: Diagnosis, Treatment Total Time: 38 minutes Critical Care: No Code: 34098 (12+)
[2016-11-22] MEDS ORDERED: D5 IV SCH (23:00)
[2016-11-22] MEDS ORDERED: KCL IV SCH (23:00)
[2016-11-22] MEDS: D5 IV SCH (23:53)
[2016-11-22] MEDS: KCL IV SCH (23:53)
[2016-11-23] MEDS: SODIUM CHLORIDE 0.9% 3 ML FLUSH FLUSH SCH ×2 (05:20→16:28)
[2016-11-23] MEDS: VANCOMYCIN PO SCH ×3 (05:20→16:30)
[2016-11-23] MEDS: D5 IV SCH ×5 (05:37→22:47)
[2016-11-23] MEDS: KCL IV SCH ×5 (05:37→22:47)
[2016-11-23 06:26] LABS: MPV 9.7 fL (7.4-10.4)
[2016-11-23 07:03] LABS: BLOOD UREA NITROGEN 30 MG/DL (7-17); CALCIUM 8.2 MG/DL (8.4-10.2); CALCULATED OSMOLALITY 287 MOs/Kg (270-290); CHLORIDE 127 mEq/L (98-107); GLUCOSE 90 MG/DL (70-99); SODIUM LEVEL 146 mEq/L (137-146)
--- NOTE | 2016-11-23 09:14 | GENMEDPROG ---
Chief Complaint: feeling stronger Notes Reviewed: Yes Events from last night noted and discussed with Clinical Staff Current Medication List: Reviewed DVT Prophylaxis: Yes - Physical Examination Vital Signs and I&O: Last Vital Signs Temp 97.7 F 11/23/16 08:00 Pulse 69 11/23/16 08:00 Resp 18 11/23/16 08:00 BP 125/69 11/23/16 08:00 Pulse Ox 96 11/23/16 08:00 Oxygen Pulse Oxygen Saturation 96 O2 Device Room Air Oxygen Flow Rate Fraction of Inspired Oxygen ( FIO2) Intake & Output 11/20/16 11/21/16 11/22/16 11/23/16 23:59 23:59 23:59 23:59 Intake Total 3772 4866 3480 1132 Output Total 1200 Balance 3772 4866 2280 1132 Patient's weight 61.235 kg 61.49 kg 61.83 kg 62.641 kg General: Alert, Oriented x3, No acute distress, Well appearing, Well nourished HEENT: Normal (Normocephalic, atraumatic;EOMI.Sclera white, Nares patent, without discharge or bleeding. No oropharyngeal lesions or erythema. Mucous membranes are dry.) Neck: Non-tender, Normal Trachea alignment, Normal inspection (No cervical lymphadenopathy. No supraclavicular lymphadenopathy.), No Masses palpable, Limited range of motion, Supple Lymphatics: Normal (No cervical lymphadenopathy. No supraclavicular lymphadenopathy.) Respiratory: Normal - CTA (Clear to auscultation bilaterally. No wheezing, rales , rhonchi. Chest wall movements are symmetric. No use of accessory muscles to breathe.) Cardiovascular: Regular rate and rhythm (No bradycardia or tachycardia), Normal S1, No Gallops,Rubs/Murmurs, Normal S2, Good Pedal Pulses (DP pulses 2+ bilaterally) GI: Normal bowel sounds (normal active sounds), Soft (non-distended), Non tender , No hepatospenomegaly, No masses Extremities/Musculoskeletal: Normal pulses (DP pulses 2+ bilaterally). negative : Edema, Clubbing, Cyanosis Skin: Warm,Dry and Intact, No rashes, No significant lesion Neurological: Strength at 5/5 X4 ext (Motor 5/5 throughout.), Normal tone, Cranial nerves 3-12 NL ( 2-12 grossly intact.) Psych/Mental Status: Appropriate, Normal Affect - Assessment (1) ARF (acute renal failure) Acute N17.9 - ACUTE KIDNEY FAILURE, UNSPECIFIED Qualifiers: Acute renal failure type: with acute tubular necrosis Qualified Code(s): N17.0 - Acute kidney failure with tubular necrosis Comment/Plan: Aggressive IV rehydration is necessary. Renal ultrasound failed to show any evidence of hydronephrosis cystic kidneys. Still sig renal failure w cr=3.6 today. (2) Hypernatremia Acute E87.0 - HYPEROSMOLALITY AND HYPERNATREMIA Comment/Plan: Noted to have hypernatremia and getting IV D5&w monitoring her electrolytes closely. Sl better. (3) C. difficile colitis Acute A04.7 - ENTEROCOLITIS DUE TO CLOSTRIDIUM DIFFICILE Comment/Plan: Patient seen and Cancer Center today stool tested positive for C diff colitis. She is being directly admitted to the hospital for treatment of above C diff colitis. Discussed with pharmacist Patricia who agrees that we should administer p.o. vancomycin instead of Flagyl due to her renal failure and multiple complications. Expect discharge when patient's stool are fewer and more firm. 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 She gets multiple cycles of chemotherapy is on her 49 cycle. Her 48 cycle was delayed due to illness and the 49th cycle is being held due to her admission for C diff colitis to the hospital today. (5) Weakness Acute R53.1 - WEAKNESS Comment/Plan: Highly associated with C diff colitis expect this to improve once her overall clinical picture is improved. (6) DVT prophylaxis Acute [id number] - Comment/Plan: Patient currently on DVT prophylaxis with Lovenox. (7) Hypokalemia Resolved E87.6 - HYPOKALEMIA Comment/Plan: Patient's potassium is very low will repeat potassium after she received some potassium in the oncology clinic today. Will provide her with IV fluids with potassium as well suspected potassium is very low due to the diarrhea will also check a magnesium level. Case Care Discussed with: Patient, Nursing Staff, Resource Management Education/Counseling Given To: Patient, Family Member Education/Counseling Given Regarding: Diagnosis, Treatment Total Time: 37 min Critical Care: No Code: 37540 (12+)
[2016-11-23] MEDS: MAGIC MOUTHWASH 180 ML ORAL SUSP PO SCH ×4 (09:29→20:50)
[2016-11-23] MEDS: NYSTATIN ORAL SUSP 5 ML PO SCH ×3 (09:30→16:28)
[2016-11-23] MEDS: PROBIOTIC BLEND TAB PO SCH ×2 (12:25→16:30)
[2016-11-23] MEDS: ENOXAPARIN 30 MG/0.3 ML PFS SQ SCH (16:30)
[2016-11-24] MEDS: NYSTATIN ORAL SUSP 5 ML PO SCH ×5 (01:15→21:52)
[2016-11-24] MEDS: VANCOMYCIN PO SCH ×4 (02:26→16:56)
[2016-11-24] MEDS: SODIUM CHLORIDE 0.9% 3 ML FLUSH FLUSH SCH ×2 (05:16→16:56)
[2016-11-24] MEDS: ONDANSETRON HCL 4 MG/2 ML VIAL IV PRN ×2 (05:16→11:58)
[2016-11-24] MEDS: KCL IV SCH ×3 (05:17→09:27)
[2016-11-24] MEDS: D5 IV SCH ×3 (05:17→09:27)
[2016-11-24 06:25] LABS: MPV 9.4 fL (7.4-10.4)
[2016-11-24 06:43] LABS: BLOOD UREA NITROGEN 26 MG/DL (7-17); CALCULATED OSMOLALITY 267 MOs/Kg (270-290); CHLORIDE 119 mEq/L (98-107); GLUCOSE 102 MG/DL (70-99); SODIUM LEVEL 136 mEq/L (137-146)
[2016-11-24] MEDS: MAGIC MOUTHWASH 180 ML ORAL SUSP PO SCH ×4 (08:39→21:52)
--- NOTE | 2016-11-24 11:34 | GENMEDPROG ---
Chief Complaint: Some diarrhea this morning. Sitting up in chair and overall feels a little better Notes Reviewed: Yes Events from last night noted and discussed with Clinical Staff Current Medication List: Reviewed Currently: Reports: SOB, Diarrhea. Denies: Cough, Wheezing, Nausea and Vomiting , Abdominal Pain, Fever/Chills, Chest Pain DVT Prophylaxis: Yes - Physical Examination Vital Signs and I&O: Last Vital Signs Temp 97.6 F 11/24/16 08:21 Pulse 74 11/24/16 08:21 Resp 18 11/24/16 08:21 BP 130/74 11/24/16 08:21 Pulse Ox 95 11/24/16 08:21 Oxygen Pulse Oxygen Saturation 95 O2 Device Room Air Oxygen Flow Rate Fraction of Inspired Oxygen ( FIO2) Intake & Output 11/21/16 11/22/16 11/23/16 11/24/16 23:59 23:59 23:59 23:59 Intake Total 4866 3480 4184 1462 Output Total 1200 Balance 4866 2280 4184 1462 Patient's weight 61.49 kg 61.83 kg 62.641 kg 62.051 kg General: Alert, Oriented x3, Cooperative, No acute distress, Well appearing, Well nourished HEENT: Normal (Normocephalic, atraumatic;EOMI.Sclera white, Nares patent, without discharge or bleeding. No oropharyngeal lesions or erythema. Mucous membranes are dry.), PERRLA, EOMI Neck: Non-tender, Normal Trachea alignment, Normal inspection (No cervical lymphadenopathy. No supraclavicular lymphadenopathy.), No Masses palpable, Limited range of motion, Supple Lymphatics: Normal (No cervical lymphadenopathy. No supraclavicular lymphadenopathy.) Respiratory: Normal - CTA (Clear to auscultation bilaterally. No wheezing, rales , rhonchi. Chest wall movements are symmetric. No use of accessory muscles to breathe.) Cardiovascular: Regular rate and rhythm (No bradycardia or tachycardia), Normal S1, No Gallops,Rubs/Murmurs, Normal S2, Good Pedal Pulses (DP pulses 2+ bilaterally) GI: Normal bowel sounds (normal active sounds), Soft (non-distended), Non tender , No hepatospenomegaly, No masses Extremities/Musculoskeletal: Normal pulses (DP pulses 2+ bilaterally). negative : Edema, Clubbing, Cyanosis Skin: Warm,Dry and Intact, No rashes, No significant lesion Neurological: Strength at 5/5 X4 ext (Motor 5/5 throughout.), Normal tone, Cranial nerves 3-12 NL ( 2-12 grossly intact.) Psych/Mental Status: Appropriate, Normal Affect, Cooperative Lab/DI/Studies Reviewed: Laboratory Results - last 24 hr 11/24/16 11/24/16 05:15 05:15 WBC 7.9 RBC 4.17 L Hgb 11.7 L Hct 37.0 MCV 89 MCH 28.1 MCHC 31.7 L RDW 16.7 H Plt Count 177 MPV 9.4 Sodium 136 L D Potassium 4.6 Chloride 119 H Carbon Dioxide 11 L Anion Gap 11 BUN 26 H Creatinine 3.50 H Estimated GFR (MDRD) 13 L Glucose 102 H Calculated Osmolality 267 L Calcium 8.0 L - Assessment (1) ARF (acute renal failure) Acute N17.9 - ACUTE KIDNEY FAILURE, UNSPECIFIED Qualifiers: Acute renal failure type: with acute tubular necrosis Qualified Code(s): N17.0 - Acute kidney failure with tubular necrosis Comment/Plan: Aggressively hydrated for several days. Now volume overloaded. Renal function slowly improved but appears to be plateauing. DC IV fluids. Dose of IV Lasix. Continue to monitor renal function. May take several weeks to recover. (2) C. difficile colitis Acute A04.7 - ENTEROCOLITIS DUE TO CLOSTRIDIUM DIFFICILE Comment/Plan: Continue p.o. vancomycin. Overall she is improving. Encourage activity and mobility. This is been somewhat limited due to volume overload (3) Hypernatremia Acute E87.0 - HYPEROSMOLALITY AND HYPERNATREMIA Comment/Plan: Sodium normal at 136. 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 She gets multiple cycles of chemotherapy is on her 49 cycle. Her 48 cycle was delayed due to illness and the 49th cycle is being held due to her admission for C diff colitis to the hospital today. (5) Weakness Acute R53.1 - WEAKNESS Comment/Plan: Remains weak and debilitated. Encourage activity and mobility. (6) Hypokalemia Resolved E87.6 - HYPOKALEMIA Comment/Plan: Potassium now 4.6. Continue to monitor. Okay to discontinue IV fluids. Case Care Discussed with: Patient, Nursing Staff, Physical Therapy, Resource Management, Respiratory Therapy, Boating Safety Officer
[2016-11-24] MEDS: PROBIOTIC BLEND TAB PO SCH ×2 (11:49→16:56)
[2016-11-24] MEDS: FUROSEMIDE 40 MG/4 ML VIAL IV SCH (16:54)
[2016-11-24] MEDS: ENOXAPARIN 30 MG/0.3 ML PFS SQ SCH (16:56)
[2016-11-24] MEDS: METRONIDAZOLE 500 MG TAB PO SCH ×2 (21:52→22:39)
[2016-11-25] MEDS: METRONIDAZOLE 500 MG TAB PO SCH ×4 (05:37→22:28)
[2016-11-25] MEDS: ONDANSETRON HCL 4 MG/2 ML VIAL IV PRN ×2 (05:44→20:31)
[2016-11-25 06:03] LABS: MPV 9.2 fL (7.4-10.4)
[2016-11-25] MEDS: SODIUM CHLORIDE 0.9% 3 ML FLUSH FLUSH SCH ×2 (06:03→17:42)
[2016-11-25 06:26] LABS: BLOOD UREA NITROGEN 28 MG/DL (7-17); CALCIUM 8.3 MG/DL (8.4-10.2); CALCULATED OSMOLALITY 261 MOs/Kg (270-290); CHLORIDE 114 mEq/L (98-107); GLUCOSE 78 MG/DL (70-99); SODIUM LEVEL 133 mEq/L (137-146)
[2016-11-25] MEDS: FUROSEMIDE 40 MG/4 ML VIAL IV SCH ×2 (09:21→15:55)
[2016-11-25] MEDS: MAGIC MOUTHWASH 180 ML ORAL SUSP PO SCH ×4 (09:22→22:25)
[2016-11-25] MEDS: NYSTATIN ORAL SUSP 5 ML PO SCH ×4 (09:22→22:25)
[2016-11-25] MEDS: PROBIOTIC BLEND TAB PO SCH ×2 (11:39→17:41)
[2016-11-25] MEDS ORDERED: SECURA EXTRA PROTECTIVE CREAM TOP ONE (16:03)
--- NOTE | 2016-11-25 17:03 | GENMEDPROG ---
Chief Complaint: Slowly better. Remains weak and poorly mobile. She wants to go home but clearly not functional enough and likely will need intermediate facility placement. Notes Reviewed: Yes Events from last night noted and discussed with Clinical Staff Current Medication List: Reviewed Currently: Reports: SOB, Diarrhea. Denies: Cough, Wheezing, Nausea and Vomiting , Abdominal Pain, Fever/Chills, Chest Pain DVT Prophylaxis: Yes - Physical Examination Vital Signs and I&O: Last Vital Signs Temp 98.0 F 11/25/16 12:00 Pulse 100 11/25/16 12:00 Resp 18 11/25/16 12:00 BP 141/73 11/25/16 12:00 Pulse Ox 96 11/25/16 12:00 Oxygen Pulse Oxygen Saturation 96 O2 Device Room Air Oxygen Flow Rate Fraction of Inspired Oxygen ( FIO2) Intake & Output 11/22/16 11/23/16 11/24/16 11/25/16 23:59 23:59 23:59 23:59 Intake Total 3480 4184 3625 240 Output Total 1200 Balance 2280 4184 3625 240 Patient's weight 61.83 kg 62.641 kg 62.051 kg General: Alert, Oriented x3, Cooperative, No acute distress, Well appearing, Well nourished HEENT: Normal (Normocephalic, atraumatic;EOMI.Sclera white, Nares patent, without discharge or bleeding. No oropharyngeal lesions or erythema. Mucous membranes are dry.), PERRLA, EOMI Neck: Non-tender, Normal Trachea alignment, Normal inspection (No cervical lymphadenopathy. No supraclavicular lymphadenopathy.), No Masses palpable, Limited range of motion, Supple Lymphatics: Normal (No cervical lymphadenopathy. No supraclavicular lymphadenopathy.) Respiratory: Normal - CTA (Clear to auscultation bilaterally. No wheezing, rales , rhonchi. Chest wall movements are symmetric. No use of accessory muscles to breathe.) Cardiovascular: Regular rate and rhythm (No bradycardia or tachycardia), Normal S1, No Gallops,Rubs/Murmurs, Normal S2, Good Pedal Pulses (DP pulses 2+ bilaterally) GI: Normal bowel sounds (normal active sounds), Soft (non-distended), Non tender , No hepatospenomegaly, No masses Extremities/Musculoskeletal: Normal pulses (DP pulses 2+ bilaterally). negative : Edema, Clubbing, Cyanosis Skin: Warm,Dry and Intact, No rashes, No significant lesion Neurological: Strength at 5/5 X4 ext (Motor 5/5 throughout.), Normal tone, Cranial nerves 3-12 NL ( 2-12 grossly intact.) Psych/Mental Status: Appropriate, Normal Affect, Cooperative Lab/DI/Studies Reviewed: Laboratory Results - last 24 hr 11/25/16 11/25/16 05:22 05:22 WBC 10.7 RBC 4.67 Hgb 13.1 D Hct 40.3 MCV 86 MCH 28.1 MCHC 32.6 L RDW 16.2 H Plt Count 213 MPV 9.2 Sodium 133 L Potassium 5.1 Chloride 114 H Carbon Dioxide 10 L Anion Gap 14 BUN 28 H Creatinine 3.80 H Estimated GFR (MDRD) 11 L Glucose 78 Calculated Osmolality 261 L Calcium 8.3 L - Assessment (1) ARF (acute renal failure) Acute N17.9 - ACUTE KIDNEY FAILURE, UNSPECIFIED Qualifiers: Acute renal failure type: with acute tubular necrosis Qualified Code(s): N17.0 - Acute kidney failure with tubular necrosis Comment/Plan: Continue diuresis. Monitor renal function closely. Creatinine stable approximately 3.5-4. (2) C. difficile colitis Acute A04.7 - ENTEROCOLITIS DUE TO CLOSTRIDIUM DIFFICILE Comment/Plan: Changed to Flagyl due to persistent nausea. Continue medications and monitor diarrhea. (3) Hypernatremia Acute E87.0 - HYPEROSMOLALITY AND HYPERNATREMIA Comment/Plan: Stable. Monitor. 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 She gets multiple cycles of chemotherapy is on her 49 cycle. Her 48 cycle was delayed due to illness and the 49th cycle is being held due to her admission for C diff colitis to the hospital today. (5) Weakness Acute R53.1 - WEAKNESS Comment/Plan: Remains weak and debilitated. Encourage activity and mobility. (6) Hypokalemia Resolved E87.6 - HYPOKALEMIA Comment/Plan: Replete as needed Case Care Discussed with: Patient, Nursing Staff, Physical Therapy, Resource Management, Respiratory Therapy, Crystal Grower
[2016-11-25] MEDS: ENOXAPARIN 30 MG/0.3 ML PFS SQ SCH (17:41)
[2016-11-26] MEDS: METRONIDAZOLE 500 MG TAB PO SCH ×3 (06:38→23:34)
[2016-11-26] MEDS: SODIUM CHLORIDE 0.9% 3 ML FLUSH FLUSH SCH ×2 (06:38→18:29)
[2016-11-26 07:17] LABS: AUTOMATED BASOPHIL 0.3 % (0-2); AUTOMATED EOSINOPHIL 3.5 % (0-5); AUTOMATED LYMPH 16.9 % (17-44); AUTOMATED MONOCYTE 5.9 % (3-10); AUTOMATED NEUTROPHIL 73.4 % (45-76); MPV 8.8 fL (7.4-10.4)
[2016-11-26 07:46] LABS: BLOOD UREA NITROGEN 35 MG/DL (7-17); CALCIUM 8.5 MG/DL (8.4-10.2); CALCULATED OSMOLALITY 266 MOs/Kg (270-290); CHLORIDE 116 mEq/L (98-107); GLUCOSE 70 MG/DL (70-99); SODIUM LEVEL 135 mEq/L (137-146)
[2016-11-26] MEDS: FUROSEMIDE 40 MG/4 ML VIAL IV SCH (09:01)
[2016-11-26] MEDS: NYSTATIN ORAL SUSP 5 ML PO SCH ×4 (09:01→23:43)
[2016-11-26] MEDS: MAGIC MOUTHWASH 180 ML ORAL SUSP PO SCH ×4 (09:01→23:43)
[2016-11-26] MEDS: PROBIOTIC BLEND TAB PO SCH ×2 (12:57→18:31)
--- NOTE | 2016-11-26 14:58 | GENMEDPROG ---
Chief Complaint: Creatinine worse today. However clinically she is feeling some better. Less abdominal pain and diarrhea. Notes Reviewed: Yes Events from last night noted and discussed with Clinical Staff Current Medication List: Reviewed Currently: Reports: SOB, Diarrhea. Denies: Cough, Wheezing, Nausea and Vomiting , Abdominal Pain, Fever/Chills, Chest Pain DVT Prophylaxis: Yes - Physical Examination Vital Signs and I&O: Last Vital Signs Temp 97.7 F 11/26/16 14:33 Pulse 98 11/26/16 14:33 Resp 18 11/26/16 14:33 BP 159/81 11/26/16 14:33 Pulse Ox 100 11/26/16 14:33 Oxygen Pulse Oxygen Saturation 100 O2 Device Room Air Oxygen Flow Rate Fraction of Inspired Oxygen ( FIO2) Intake & Output 11/23/16 11/24/16 11/25/16 11/26/16 23:59 23:59 23:59 23:59 Intake Total 4184 3625 240 520 Balance 4184 3625 240 520 Patient's weight 62.641 kg 62.051 kg 68.81 kg General: Alert, Oriented x3, Cooperative, No acute distress, Well appearing, Well nourished HEENT: Normal (Normocephalic, atraumatic;EOMI.Sclera white, Nares patent, without discharge or bleeding. No oropharyngeal lesions or erythema. Mucous membranes are dry.), PERRLA, EOMI, Anicteric Sclera Neck: Non-tender, Normal Trachea alignment, Normal inspection (No cervical lymphadenopathy. No supraclavicular lymphadenopathy.), No Masses palpable, Limited range of motion, Supple Lymphatics: Normal (No cervical lymphadenopathy. No supraclavicular lymphadenopathy.) Respiratory: Normal - CTA (Clear to auscultation bilaterally. No wheezing, rales , rhonchi. Chest wall movements are symmetric. No use of accessory muscles to breathe.) Cardiovascular: Regular rate and rhythm (No bradycardia or tachycardia), Normal S1, No Gallops,Rubs/Murmurs, Normal S2, Good Pedal Pulses (DP pulses 2+ bilaterally) GI: Normal bowel sounds (normal active sounds), Soft (non-distended), Non tender , No hepatospenomegaly, No masses Extremities/Musculoskeletal: Normal pulses (DP pulses 2+ bilaterally). negative : Edema, Clubbing, Cyanosis Skin: Warm,Dry and Intact, No rashes, No significant lesion Neurological: Strength at 5/5 X4 ext (Motor 5/5 throughout.), Normal tone, Cranial nerves 3-12 NL ( 2-12 grossly intact.) Psych/Mental Status: Appropriate, Normal Affect, Cooperative Lab/DI/Studies Reviewed: Laboratory Results - last 24 hr 11/26/16 11/26/16 06:10 06:10 WBC 8.8 RBC 4.36 Hgb 12.5 Hct 37.7 MCV 87 MCH 28.6 MCHC 33.1 RDW 16.6 H Plt Count 205 MPV 8.8 Neut % (Auto) 73.4 Lymph % (Auto) 16.9 L [place] % (Auto) 5.9 Eos % (Auto) 3.5 Baso % (Auto) 0.3 Absolute Neuts (auto) 6.42 Absolute Lymphs (auto) 1.41 Sodium 135 L Potassium 4.9 Chloride 116 H Carbon Dioxide 11 L Anion Gap 13 BUN 35 H Creatinine 4.60 H Estimated GFR (MDRD) 9 L Glucose 70 Calculated Osmolality 266 L Calcium 8.5 - Assessment (1) ARF (acute renal failure) Acute N17.9 - ACUTE KIDNEY FAILURE, UNSPECIFIED Qualifiers: Acute renal failure type: with acute tubular necrosis Qualified Code(s): N17.0 - Acute kidney failure with tubular necrosis Comment/Plan: Creatinine worsen significantly overnight. Clinically she feels better. Will hold diuretic and monitor closely. (2) C. difficile colitis Acute A04.7 - ENTEROCOLITIS DUE TO CLOSTRIDIUM DIFFICILE Comment/Plan: Changed to Flagyl due to persistent nausea. Continue medications and monitor diarrhea. (3) Hypernatremia Acute E87.0 - HYPEROSMOLALITY AND HYPERNATREMIA Comment/Plan: Stable. Monitor. 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 She gets multiple cycles of chemotherapy is on her 49 cycle. Her 48 cycle was delayed due to illness and the 49th cycle is being held due to her admission for C diff colitis to the hospital today. (5) Weakness Acute R53.1 - WEAKNESS Comment/Plan: Remains weak and debilitated. Encourage activity and mobility. (6) Hypokalemia Resolved E87.6 - HYPOKALEMIA Comment/Plan: Replete as needed Case Care Discussed with: Patient, Consultants, Family, Nursing Staff, Physical Therapy, Resource Management, Accounts Payable Assistant
[2016-11-26] MEDS: ENOXAPARIN 30 MG/0.3 ML PFS SQ SCH (18:28)
[2016-11-27] MEDS: METRONIDAZOLE 500 MG TAB PO SCH ×3 (06:31→22:48)
[2016-11-27] MEDS: SODIUM CHLORIDE 0.9% 3 ML FLUSH FLUSH SCH ×2 (06:31→16:51)
[2016-11-27] MEDS: NYSTATIN ORAL SUSP 5 ML PO SCH ×4 (08:43→22:48)
[2016-11-27] MEDS: MAGIC MOUTHWASH 180 ML ORAL SUSP PO SCH ×4 (08:44→22:46)
[2016-11-27 10:36] LABS: AUTOMATED BASOPHIL 0.3 % (0-2); AUTOMATED EOSINOPHIL 3.4 % (0-5); AUTOMATED LYMPH 17.8 % (17-44); AUTOMATED NEUTROPHIL 73.5 % (45-76); MPV 8.7 fL (7.4-10.4)
[2016-11-27 10:51] LABS: BLOOD UREA NITROGEN 41 MG/DL (7-17); CALCIUM 8.4 MG/DL (8.4-10.2); CALCULATED OSMOLALITY 269 MOs/Kg (270-290); CHLORIDE 114 mEq/L (98-107); GLUCOSE 89 MG/DL (70-99); SODIUM LEVEL 135 mEq/L (137-146)
[2016-11-27] MEDS: PROBIOTIC BLEND TAB PO SCH ×2 (12:23→16:50)
--- NOTE | 2016-11-27 12:48 | GENMEDPROG ---
Chief Complaint: Clinically feels better. Renal function worsening however. She states she is still peeing without difficulty. Notes Reviewed: Yes Events from last night noted and discussed with Clinical Staff Currently: Reports: SOB, Diarrhea. Denies: Cough, Wheezing, Nausea and Vomiting , Abdominal Pain, Fever/Chills, Chest Pain DVT Prophylaxis: Yes - Physical Examination Vital Signs and I&O: Last Vital Signs Temp 97.5 F 11/27/16 04:00 Pulse 77 11/27/16 04:00 Resp 20 11/27/16 04:00 BP 122/68 11/27/16 04:00 Pulse Ox 100 11/27/16 04:00 Oxygen Pulse Oxygen Saturation 100 O2 Device Room Air Oxygen Flow Rate Fraction of Inspired Oxygen ( FIO2) Intake & Output 11/24/16 11/25/16 11/26/16 11/27/16 23:59 23:59 23:59 23:59 Intake Total 3625 240 755 110 Balance 3625 240 755 110 Patient's weight 62.051 kg 68.81 kg 68.294 kg General: Alert, Oriented x3, Cooperative, No acute distress, Well appearing, Well nourished HEENT: Normal (Normocephalic, atraumatic;EOMI.Sclera white, Nares patent, without discharge or bleeding. No oropharyngeal lesions or erythema. Mucous membranes are dry.), PERRLA, EOMI, Anicteric Sclera Neck: Non-tender, Normal Trachea alignment, Normal inspection (No cervical lymphadenopathy. No supraclavicular lymphadenopathy.), No Masses palpable, Limited range of motion, Supple Lymphatics: Normal (No cervical lymphadenopathy. No supraclavicular lymphadenopathy.) Respiratory: Normal - CTA (Clear to auscultation bilaterally. No wheezing, rales , rhonchi. Chest wall movements are symmetric. No use of accessory muscles to breathe.) Cardiovascular: Regular rate and rhythm (No bradycardia or tachycardia), Normal S1, No Gallops,Rubs/Murmurs, Normal S2, Good Pedal Pulses (DP pulses 2+ bilaterally) GI: Normal bowel sounds (normal active sounds), Soft (non-distended), Non tender , No hepatospenomegaly, No masses Extremities/Musculoskeletal: Normal pulses (DP pulses 2+ bilaterally). negative : Edema, Clubbing, Cyanosis Skin: Warm,Dry and Intact, No rashes, No significant lesion Neurological: Strength at 5/5 X4 ext (Motor 5/5 throughout.), Normal tone, Cranial nerves 3-12 NL ( 2-12 grossly intact.) Psych/Mental Status: Appropriate, Normal Affect, Cooperative Lab/DI/Studies Reviewed: Laboratory Results - last 24 hr 11/27/16 11/27/16 10:03 10:03 WBC 10.1 RBC 4.38 Hgb 12.3 Hct 38.2 MCV 87 MCH 28.2 MCHC 32.3 L RDW 16.9 H Plt Count 221 MPV 8.7 Neut % (Auto) 73.5 Lymph % (Auto) 17.8 [place] % (Auto) 5.0 Eos % (Auto) 3.4 Baso % (Auto) 0.3 Absolute Neuts (auto) 7.37 Absolute Lymphs (auto) 1.72 Sodium 135 L Potassium 4.4 Chloride 114 H Carbon Dioxide 10 L Anion Gap 15 BUN 41 H Creatinine 5.20 H Estimated GFR (MDRD) 8 L Glucose 89 Calculated Osmolality 269 L Calcium 8.4 - Assessment (1) ARF (acute renal failure) Acute N17.9 - ACUTE KIDNEY FAILURE, UNSPECIFIED Qualifiers: Acute renal failure type: with acute tubular necrosis Qualified Code(s): N17.0 - Acute kidney failure with tubular necrosis Comment/Plan: Creatinine continues to worsen. Clinically she feels better. She does state that she has been urinating without difficulty. Held diuretic the last 2 days. May need Nephrology to see in consultation. Avoid nephrotoxins agents. (2) C. difficile colitis Acute A04.7 - ENTEROCOLITIS DUE TO CLOSTRIDIUM DIFFICILE Comment/Plan: Changed to Flagyl due to persistent nausea. Continue medications and monitor diarrhea. (3) Hypernatremia Acute E87.0 - HYPEROSMOLALITY AND HYPERNATREMIA Comment/Plan: Stable. Monitor. 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 She gets multiple cycles of chemotherapy is on her 49 cycle. Her 48 cycle was delayed due to illness and the 49th cycle is being held due to her admission for C diff colitis to the hospital today. (5) Weakness Acute R53.1 - WEAKNESS Comment/Plan: Remains weak and debilitated. Encourage activity and mobility. (6) Hypokalemia Resolved E87.6 - HYPOKALEMIA Comment/Plan: Replete as needed Case Care Discussed with: Patient, Consultants, Nursing Staff, Physical Therapy , Resource Management, Roasterman
[2016-11-27] MEDS: [UNRECOGNIZED DRUG - OTHER] IV SCH (13:58)
[2016-11-27] MEDS: SODIUM BICARBONATE IV SCH (13:58)
[2016-11-27] MEDS: ENOXAPARIN 30 MG/0.3 ML PFS SQ SCH (16:51)
[2016-11-28] MEDS: [UNRECOGNIZED DRUG - OTHER] IV SCH ×3 (02:57→16:13)
[2016-11-28] MEDS: SODIUM BICARBONATE IV SCH ×3 (02:57→16:13)
[2016-11-28 06:25] VITALS: BMI 28.0
[2016-11-28] MEDS: METRONIDAZOLE 500 MG TAB PO SCH ×3 (06:28→20:38)
[2016-11-28] MEDS: SODIUM CHLORIDE 0.9% 3 ML FLUSH FLUSH SCH ×2 (06:29→17:52)
[2016-11-28 07:41] LABS: AUTOMATED BASOPHIL 0.3 % (0-2); AUTOMATED EOSINOPHIL 3.9 % (0-5); AUTOMATED LYMPH 20.9 % (17-44); AUTOMATED MONOCYTE 6.8 % (3-10); AUTOMATED NEUTROPHIL 68.1 % (45-76); MPV 8.7 fL (7.4-10.4)
[2016-11-28 08:00] LABS: BLOOD UREA NITROGEN 42 MG/DL (7-17); CALCIUM 8.1 MG/DL (8.4-10.2); CALCULATED OSMOLALITY 272 MOs/Kg (270-290); CHLORIDE 112 mEq/L (98-107); GLUCOSE 81 MG/DL (70-99); SODIUM LEVEL 136 mEq/L (137-146)
[2016-11-28] MEDS: NYSTATIN ORAL SUSP 5 ML PO SCH ×4 (09:22→20:38)
[2016-11-28] MEDS: MAGIC MOUTHWASH 180 ML ORAL SUSP PO SCH ×4 (09:22→20:38)
--- NOTE | 2016-11-28 10:49 | HIMCONSMED ---
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 However, CT scans dating back for at least the past year have shown her to essential have had a complete response to her therapy. The patient had a persistent upper respiratory infection after 7 days of amoxicillin, so amoxicillin was continued for an additional 10 days. She states she completed her antibiotics yesterday. Unfortunately she has had significant diarrhea, which she attributes to the antibiotic use. She states she has not been using the Imodium regularly, as her stool was discolored. She denies nausea, vomiting or abdominal pain. She states her appetite is poor and has not been eating. She last ate Jello 2 days ago. She states she has been drinking plenty of fluids, including Gatorade. She remains weak and is in a wheelchair today. She denies dizziness, fevers or chills. Patient's stool was tested and she was found to be positive for C diff coli sepsis. The creatinine on admission was found to be elevated above 5 and was presumed to be volume depleted -- she was therefore vigorously rehydrated to the point of developing edema and IV lasix was instituted. There have been no administration of nephrotoxins and there do not have appeared to be any hypotensive spells in hospital to suggest ischemic renal injury Creatinine has remained high dispite IV fluids and renal ultrasound failed to demonstrate any hydronephrosis Urinalysis did reveal some blood and protein Chief Complaint: Patient presents with profound diarrhea and weakness present for about several days - Past Medical and Surgical History Cardiac History: Denies: Hypertension, Congestive Heart Failure, Heart Attack, Cardiac Catheterization, CABG, Pacemaker, Syncope, SVT Respiratory History: Reports: Pulmonary Embolism (02/2014). Denies: Asthma, COPD, Pneumonia, Emphysema GI/ History: Denies: Renal Disease, Renal Failure, Urinary Tract Infection, Kidney Stones, Ulcer, Diverticulosis, Pancreatitis Systemic History: Reports: Cancer. Denies: Anemia, Hyperthyroidism, Hypothyroidism Musculoskeletal History: Reports: Arthritis, Osteoarthritis. Denies: Gout Psychological History: Denies: Depression, Anxiety, Bipolar Disorder, Alcoholism Neurological History: Denies: Cerebrovascular Accident, Seizures, Dementia, Guillian-Shelby Syndrome, Parkinson's, Multiple Sclerosis Past Surgical History: Reports: Hysterectomy. Denies: Appendectomy, Cholecystectomy, CABG, Angioplasty, Cardiac Catheterization, Hernia Surgery, Tonsillectomy/Adnoidectomy Allergies clarithromycin Allergy (Verified 11/20/16 14:51) Edema-Generalized nitrofurantoin Allergy (Verified 11/20/16 14:51) Nausea/Vomiting Sulfa (Sulfonamide Antibiotics) Allergy (Verified 11/20/16 14:51) Dizziness Home Medications No Home Medications 11/20/16 - Social History Travel Outside of [place] in the Last 3 Months?: No Lives: With Family Smoking Status: Never smoker Social History: Denies: Alcohol Use - Family History Reports: Hypertension (PARENTS), Cancer (BROTHER BRAIN TUMOR ), Stroke (MOTHER) , Cardiac Disorders (PARENTS). Denies: Diabetes - Review of Systems Constitutional: Fatigue, Loss of Appetite, Weakness. negative: Chills, Fever Eyes: No Symptoms Reported Ears: No Symptoms Reported Nose: No Symptoms Reported Mouth: No Symptoms Reported Throat/Neck: No Symptoms Reported Respiratory: No Symptoms Reported Cardiovascular: No Symptoms Reported Gastrointestinal: Diarrhea (cdIFF) Genitourinary: No Symptoms Reported, Hematuria Neurological: No Symptoms Reported Musculoskeletal:: No Symptoms Reported Integumentary: No Symptoms Reported Allergic/Immunologic: No Symptoms Reported Hematologic: Anemia, Other (HISTROOY OF BREAST CANCER) Endocrine: No Symptoms Reported Psychiatric: No Symptoms Reported - Physical Exam Vital Signs: Initial Vitals Pulse Rate 80 11/19/16 14:57 Constitutional: Cachectic. negative: Well nourished, Well appearing Oriented to: Time, Person, Place - HEENT Head: Normal Eye: Normal Oropharynx: Normal Tympanic Membrane: Normal ENT EAC: Normal TMJ: Normal Nose: No Symptoms Reported Respiratory: Normal - CTA Cardiovascular: Normal - GI Auscultation: Normal Palpation: Normal. negative: Enlarged liver, Enlarged spleen, Fluid Wave, Mass Tenderness: Non tender Rectal Exam: Deferred - Musculoskeletal Back: Normal Extremities: Normal Spine: non-tender - Integumentary Skin: Normal Lymphatics: Normal - Neurologic Memory Impaired: Normal Motor Function: Normal Cerebellar: Normal - Lab Results 11/28/16 06:47 11/28/16 06:47 Last Vital Signs Temp 98.2 F 11/28/16 06:46 Pulse 84 11/28/16 06:46 Resp 18 11/28/16 06:46 BP 131/65 11/28/16 06:46 Pulse Ox 95 11/28/16 06:46 - Assessment (1) ARF (acute renal failure) N17.9 - ACUTE KIDNEY FAILURE, UNSPECIFIED Acute Qualifiers: Acute renal failure type: with acute tubular necrosis Qualified Code(s): N17.0 - Acute kidney failure with tubular necrosis Creatinine continues to worsen. despite hydration. This remains puzzling and no ischemic or nephrotoxic damage appears to be a likely cause of ATN. The diffential would include Acute interstitial injury or Acute glomerulonephritis - - vasculitis or infection related. Recommend serologies ANCA ELEANOR C3 C4 and consider renal biopsy If continues to worsen suggest transfer to [facility] for consideration of dialysis Case Care Discussed with: Patient, Consultants
[2016-11-28] MEDS: PROBIOTIC BLEND TAB PO SCH ×2 (12:14→17:52)
[2016-11-28] MEDS: FERROUS SULFATE 324 MG TAB PO SCH (12:14)
[2016-11-28] MEDS: [UNRECOGNIZED DRUG - OTHER] PO SCH ×2 (12:14→17:53)
--- NOTE | 2016-11-28 17:41 | GENMEDPROG ---
Chief Complaint: States she is feeling much better Notes Reviewed: Yes Events from last night noted and discussed with Clinical Staff Current Medication List: Reviewed Currently: Reports: SOB, Diarrhea. Denies: Cough, Wheezing, Nausea and Vomiting , Abdominal Pain, Fever/Chills, Chest Pain DVT Prophylaxis: Yes - Physical Examination Vital Signs and I&O: Last Vital Signs Temp 98.3 F 11/28/16 14:00 Pulse 77 11/28/16 14:00 Resp 18 11/28/16 14:00 BP 123/61 11/28/16 14:00 Pulse Ox 99 11/28/16 14:00 Oxygen Pulse Oxygen Saturation 99 O2 Device Room Air Oxygen Flow Rate Fraction of Inspired Oxygen ( FIO2) Intake & Output 11/25/16 11/26/16 11/27/16 11/28/16 23:59 23:59 23:59 23:59 Intake Total 240 664 270 9733 Output Total 700 Balance 240 874 567 1627 Patient's weight 68.81 kg 68.294 kg 67.188 kg General: Alert, Oriented x3, No acute distress HEENT: Normal (Normocephalic, atraumatic;EOMI.Sclera white, Nares patent, without discharge or bleeding. No oropharyngeal lesions or erythema. Mucous membranes are dry.) Neck: Non-tender, Full range of motion, Normal Trachea alignment, Normal inspection (No cervical lymphadenopathy. No supraclavicular lymphadenopathy.), No Masses palpable, Supple Lymphatics: Normal Respiratory: Normal - CTA Cardiovascular: Regular rate and rhythm (No bradycardia or tachycardia), Normal S1, No Gallops,Rubs/Murmurs, Normal S2, Good Pedal Pulses (DP pulses 2+ bilaterally) GI: Normal bowel sounds (normal active sounds), Soft (non-distended), Non tender , No hepatospenomegaly, No masses Skin: Warm,Dry and Intact, No rashes, No significant lesion Neurological: Normal tone, Cranial nerves 3-12 NL ( 2-12 grossly intact.). negative: Strength at 5/5 X4 ext Psych/Mental Status: Appropriate, Normal Affect Lab/DI/Studies Reviewed: 11/28/16 06:47 11/28/16 06:47 Laboratory Results - last 24 hr 11/27/16 11/28/16 11/28/16 20:04 06:47 06:47 WBC 8.1 RBC 3.72 L Hgb 10.7 L D Hct 32.2 L MCV 87 MCH 28.7 MCHC 33.2 RDW 16.7 H Plt Count 203 MPV 8.7 Neut % (Auto) 68.1 Lymph % (Auto) 20.9 [place] % (Auto) 6.8 Eos % (Auto) 3.9 Baso % (Auto) 0.3 Absolute Neuts (auto) 5.51 Absolute Lymphs (auto) 1.62 Sodium 136 L Potassium 4.1 Chloride 112 H Carbon Dioxide 15 L Anion Gap 13 BUN 42 H Creatinine 5.00 H Estimated GFR (MDRD) 8 L Glucose 81 POC Capillary Glucose 89 Calculated Osmolality 272 Calcium 8.1 L - Assessment (1) ARF (acute renal failure) Acute N17.9 - ACUTE KIDNEY FAILURE, UNSPECIFIED Qualifiers: Acute renal failure type: with acute tubular necrosis Qualified Code(s): N17.0 - Acute kidney failure with tubular necrosis Comment/Plan: Creatinine has now plateaued. This remains puzzling and no ischemic or nephrotoxic damage appears to be a likely cause of ATN. The diffential would include Acute interstitial injury or Acute glomerulonephritis - - vasculitis or infection related. Dr. Fink has recommended serologies ANCA ELEANOR C3 C4 and consider renal biopsy If continues to worsen suggest transfer to [facility] for consideration of dialysis. Oral Vancomycin was discontinued as there is a less than 1% chance of some systemic absorption contributing to interstitial nephritis. (2) Hypernatremia Acute E87.0 - HYPEROSMOLALITY AND HYPERNATREMIA Comment/Plan: Stable. Monitor. (3) C. difficile colitis Acute A04.7 - ENTEROCOLITIS DUE TO CLOSTRIDIUM DIFFICILE Comment/Plan: Changed to Flagyl due to persistent nausea. Continue medications and monitor diarrhea. 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 She gets multiple cycles of chemotherapy is on her 49 cycle. Her 48 cycle was delayed due to illness and the 49th cycle is being held due to her admission for C diff colitis to the hospital today. (5) Weakness Acute R53.1 - WEAKNESS Comment/Plan: Remains weak and debilitated. Encourage activity and mobility. (6) DVT prophylaxis Acute [id number] - Comment/Plan: Patient currently on DVT prophylaxis with Lovenox. (7) Hypokalemia Resolved E87.6 - HYPOKALEMIA Comment/Plan: Replete as needed Case Care Discussed with: Patient, Nursing Staff, Resource Management, Other ( Discussed with pharmacy.) Education/Counseling Given To: Patient Education/Counseling Given Regarding: Diagnosis Total Time: 41 min Critical Care: No
[2016-11-28] MEDS: ENOXAPARIN 30 MG/0.3 ML PFS SQ SCH (17:54)
[2016-11-29] MEDS: SODIUM CHLORIDE 0.9% 3 ML FLUSH FLUSH SCH (05:17)
[2016-11-29] MEDS: METRONIDAZOLE 500 MG TAB PO SCH ×2 (05:20→12:43)
[2016-11-29] MEDS: MAGIC MOUTHWASH 180 ML ORAL SUSP PO SCH ×2 (07:54→11:07)
[2016-11-29] MEDS: [UNRECOGNIZED DRUG - OTHER] PO SCH ×2 (07:55→11:07)
[2016-11-29] MEDS: [UNRECOGNIZED DRUG - OTHER] IV SCH (07:56)
[2016-11-29] MEDS: NYSTATIN ORAL SUSP 5 ML PO SCH ×2 (07:56→11:08)
[2016-11-29] MEDS: SODIUM BICARBONATE IV SCH (07:56)
[2016-11-29 08:08] LABS: AUTOMATED BASOPHIL 0.4 % (0-2); AUTOMATED LYMPH 17.4 % (17-44); AUTOMATED MONOCYTE 6.3 % (3-10); AUTOMATED NEUTROPHIL 71.9 % (45-76); MPV 8.1 fL (7.4-10.4)
[2016-11-29 08:30] LABS: BLOOD UREA NITROGEN 44 MG/DL (7-17); CALCIUM 7.8 MG/DL (8.4-10.2); CALCULATED OSMOLALITY 275 MOs/Kg (270-290); CHLORIDE 112 mEq/L (98-107); GLUCOSE 66 MG/DL (70-99); SODIUM LEVEL 138 mEq/L (137-146)
[2016-11-29] MEDS: FERROUS SULFATE 324 MG TAB PO SCH (11:07)
[2016-11-29] MEDS: PROBIOTIC BLEND TAB PO SCH (11:07)
--- NOTE | 2016-11-29 14:38 | PCM.DCS92 ---
- Final/Secondary Discharge Diagnosis (1) ARF (acute renal failure) Acute N17.9 - ACUTE KIDNEY FAILURE, UNSPECIFIED Present on Admission: Yes with acute tubular necrosis N17.0 - Acute kidney failure with tubular necrosis Comment: Creatinine has now plateaued. This remains puzzling and no ischemic or nephrotoxic damage appears to be a likely cause of ATN. The diffential would include Acute interstitial injury or Acute glomerulonephritis -- vasculitis or infection related. Dr. Fink has recommended serologies ANCA ELEANOR C3 C4 and consider renal biopsy If continues to worsen suggest transfer to [facility] for consideration of dialysis. Oral Vancomycin was discontinued as there is a less than 1% chance of some systemic absorption contributing to interstitial nephritis. (2) C. difficile colitis Acute A04.7 - ENTEROCOLITIS DUE TO CLOSTRIDIUM DIFFICILE Present on Admission: Yes Comment: Changed to Flagyl due to persistent nausea. Continue medications and monitor diarrhea. 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 She gets multiple cycles of chemotherapy is on her 49 cycle. Her 48 cycle was delayed due to illness and the 49th cycle is being held due to her admission for C diff colitis to the hospital today. (4) Weakness Acute R53.1 - WEAKNESS Present on Admission: Yes Comment: Remains weak and debilitated. Encourage activity and mobility. (5) Hypokalemia Resolved E87.6 - HYPOKALEMIA Present on Admission: Yes Comment: Replete as needed (6) Hypernatremia Resolved E87.0 - HYPEROSMOLALITY AND HYPERNATREMIA Present on Admission: Yes Comment: Stable. Monitor. (7) DVT prophylaxis Acute [id number] - Present on Admission: Yes Comment: Patient currently on DVT prophylaxis with Lovenox. Discharge Disposition: [facility] Discharge Condition: Fair Cognitive Discharge Status: Cognitive deficits prevent decision making for safety. Fuctional Discharge Status: Walker Assistance New Prescriptions: Ferrous Sulfate 324 mg PO DAILY@1200 #20 tablet Metronidazole [Flagyl] 500 mg PO Q8 #20 tablet Probiotic Blend [Ariela Q] 1 tab PO BIDLS #60 tablet Sodium Citrate-Citric Acid [Bicitra, Oracit, Shohl's] 15 ml PO TIDWM #4 oz Discharge Home Medication List Ferrous Sulfate 324 mg PO DAILY@1200 #20 tablet 11/29/16 [Rx Last Taken Unknown] Metronidazole [Flagyl] 500 mg PO Q8 #20 tablet 11/29/16 [Rx Last Taken Unknown] Probiotic Blend [Ariela Q] 1 tab PO BIDLS #60 tablet 11/29/16 [Rx Last Taken Unknown] Sodium Citrate-Citric Acid [Bicitra, Oracit, Shohl's] 15 ml PO TIDWM #4 oz 11/29 [Rx Last Taken Unknown] 11/29/16 07:40 11/29/16 07:40 Laboratory Results - last 24 hr 11/29/16 11/29/16 07:40 07:40 WBC 6.2 RBC 3.39 L Hgb 9.7 L Hct 29.3 L MCV 86 MCH 28.7 MCHC 33.3 RDW 16.4 H Plt Count 183 MPV 8.1 Neut % (Auto) 71.9 Lymph % (Auto) 17.4 [place] % (Auto) 6.3 Eos % (Auto) 4.0 Baso % (Auto) 0.4 Absolute Neuts (auto) 4.40 Absolute Lymphs (auto) 1.05 Sodium 138 Potassium 3.7 Chloride 112 H Carbon Dioxide 18 L Anion Gap 12 BUN 44 H Creatinine 5.00 H Estimated GFR (MDRD) 8 L Glucose 66 L Calculated Osmolality 275 Calcium 7.8 L O2 Device: Room Air Diet at Discharge: As Tolerated Activity: As Tolerated Discontinue use of:: Alcohol, All Types of Tobacco - DC Summary Notes HPI/Notes: the patient is a 81-year-old woman with 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 However, CT scans dating back for at least the past year have shown her to essential have had a complete response to her therapy. The patient had a persistent upper respiratory infection after 7 days of amoxicillin, so amoxicillin was continued for an additional 10 days. She states she completed her antibiotics yesterday. Unfortunately she has had significant diarrhea, which she attributes to the antibiotic use. She states she has not been using the Imodium regularly, as her stool was discolored. She denies nausea, vomiting or abdominal pain. She states her appetite is poor and has not been eating. She last ate Jello 2 days ago. She states she has been drinking plenty of fluids, including Gatorade. She remains weak and is in a wheelchair today. She denies dizziness, fevers or chills. Patient's stool was tested and she was found to be positive for C diff coli sepsis. The creatinine on admission was found to be elevated above 5 and was presumed to be volume depleted -- she was therefore vigorously rehydrated to the point of developing edema and IV lasix was instituted. There have been no administration of nephrotoxins and there do not have appeared to be any hypotensive spells in hospital to suggest ischemic renal injury Creatinine has remained high despite IV fluids and renal ultrasound failed to demonstrate any hydronephrosis Urinalysis did reveal some blood and protein Hospital Course Note:: Discharge summary on patient named PEDRO PABLO SHEEHAN admitted to [facility] on 11/19/16 by Wilner Lozano MD. Date of discharge is []. She came in with C. Diff and arf . Total Time: 41 min Code: 81867 (>30min.) - Physical Exam Vital Signs: Last Vital Signs Temp 98.6 F 11/29/16 06:35 Pulse 77 11/29/16 06:35 Resp 18 11/29/16 06:35 BP 150/77 11/29/16 06:35 Pulse Ox 97 11/29/16 06:35 Oxygen Pulse Oxygen Saturation 97 O2 Device Room Air Oxygen Flow Rate Fraction of Inspired Oxygen ( FIO2) Constitutional: Cachectic. negative: Well nourished, Well appearing Oriented to: Time, Person, Place - HEENT Head: Normal Eye: Normal Oropharynx: Normal Tympanic Membrane: Normal ENT EAC: Normal TMJ: Normal Nose: No Symptoms Reported - Respiratory/Cardiovascular Respiratory: Normal - CTA Cardiovascular: Normal (RRR , Normal S1, S2. No murmurs, rubs, or gallops. PMI non-displaced. Carotids: no carotid bruits. No bradycardia or tachycardia. DP pulses 2+ bilaterally.) - GI Auscultation: Normal Palpation: Normal. negative: Enlarged liver, Enlarged spleen, Fluid Wave, Mass Tenderness: Non tender Rectal Exam: Deferred - Musculoskeletal Back: Normal Extremities: Normal - Integumentary Skin: Normal (Warm dry no rashes) Lymphatics: Normal - Neurologic Memory Impaired: Normal Motor Function: Abnormal Cranial Nerve: Normal (CN II-XII intact sensation, strength 5/5) Cerebellar: Normal Mood Description: Normal (Fully oriented. Normal and appropriate affect.) Thought: Coherent Perception: Normal (Normal and appropriate affect.)
[2016-11-29 15:30] VITALS: BP 130/80; PULSE 75; TEMP 98
[2016-11-29] MEDS ORDERED: HEPARIN 500 UNITS/5 ML (100 UNITS/ML) SYR FLUSH ONE (16:00)
== END 2016-11-29 18:23 | DRG 371 ==
LOC: MEDONC 11:09 → PCU 14:53 → MPS3 11-25 21:15
PROVIDERS: ADMIT Hospitalist; ATTEND Internal Medicine
DX: A04.7 Enterocolitis due to Clostridium difficile (principal); N17.0 Acute kidney failure with tubular necrosis; E87.0 Hyperosmolality and hypernatremia; C78.00 Secondary malignant neoplasm of unspecified lung; B37.0 Candidal stomatitis; C50.912 Malignant neoplasm of unspecified site of left female breast; R53.1 Weakness; E87.6 Hypokalemia; Z86.711 Personal history of pulmonary embolism; M19.90 Unspecified osteoarthritis, unspecified site; Z88.8 Allergy status to other drugs, medicaments and biological substances; Z88.2 Allergy status to sulfonamides; Z79.899 Other long term (current) drug therapy
CPT/HCPCS: 76770; 80048; 80053; 81001; 82962; 83630; 83735; 85025; 85027; 86038; 86160; 86256; 87045; 87046; 87086; 87177; 87205; 87209; 87427; 87449; 87493; 96361; 96367; 96372; 96413; 97162; 99214; 99222; G0237; J1642; J1650; J1940; J2405; J3370; J3480; J3490; J7040